=== PATIENT | male | born 1975 ===

== ENCOUNTER 2020-09-07 17:11 | Outpatient (REF) | payer OTHER, SELFPAY | END 2020-09-07 17:12 | disposition home or self-care (01) | LOC: HO.LAB 17:11 | PROVIDERS: PCP Internal Medicine; Visit Provider Internal Medicine | DX: Z20.828 Contact with and (suspected) exposure to other viral communicable diseases (principal) | CPT/HCPCS: U0003 ==

== ENCOUNTER → 2020-09-18 08:41 | Outpatient (BNVA) | payer OTHER, SELFPAY | PROVIDERS: PCP Internal Medicine; Referring Provider Internal Medicine; Visit Provider Nurse Practitioner Family | DX: Z76.89 Persons encountering health services in other specified circumstances (principal) ==

== ENCOUNTER → 2020-10-03 10:58 | Outpatient (REF) | payer OTHER, SELFPAY | LOC: HO.SL 10:58 | PROVIDERS: PCP Internal Medicine; Visit Provider Internal Medicine | DX: G47.9 Sleep disorder, unspecified (principal) | CPT/HCPCS: 95806 ==

== ENCOUNTER 2021-05-29 09:13 | Outpatient (REF) | payer OTHER, SELFPAY ==
--- NOTE | ~2021-05-29 | FL_ITS ---
EXAMINATION: XR GI SERIES CLINICAL INFORMATION: Gastroesophageal reflux disease. COMPARISON: None TECHNIQUE: Air-contrast upper GI examination. FINDINGS: There is normal apposition of the vocal cords while saying E. There is normal elevation of the soft palate while saying candy. Patient drank a combination of thin and thick liquid. No nasopharyngeal reflux or tracheal aspiration. Normal esophageal motility. No esophageal ulceration or persistent stricture appreciated. There is noted to be free gastroesophageal reflux to the level of the thoracic inlet which cleared slowly. There is a small hiatal hernia seen. The stomach demonstrates normal distensibility without abnormal mass or ulceration. There was no delay in gastric emptying. The duodenal bulb and sweep appear unremarkable. FLUOROSCOPY TIME: 1.6 minutes DOSE AREA PRODUCT: 12.212 Gy-cm2 (logan-centimeter squared) FL/FL upper GI series IMPRESSION: Free gastroesophageal reflux to the level of the thoracic inlet. Small hiatal hernia.
== END 2021-05-29 09:14 | disposition home or self-care (01) ==
LOC: HO.XRAY 09:13
PROVIDERS: PCP Internal Medicine; Visit Provider Internal Medicine
DX: K21.9 Gastro-esophageal reflux disease without esophagitis (principal)
CPT/HCPCS: 74240

== ENCOUNTER 2022-01-01 09:09 | Outpatient (REF) | payer OTHER, SELFPAY ==
--- NOTE | ~2022-01-01 | XR_ITS ---
EXAMINATION: XR SHOULDER, RIGHT XR SCAPULA, RIGHT CLINICAL INFORMATION: Pain right shoulder COMPARISON: None TECHNIQUE: Right shoulder is imaged in 4 views. There are 2 views of the right scapular. There are total of 6 views. FINDINGS: There is bulky calcific tendinosis in region of distal superior rotator cuff measuring approximately 5 mm in thickness, 1.2 cm medial to lateral, and 1.4 cm AP. There are no erosive changes. The glenohumeral joint appears normal. The acromioclavicular alignment is normal. There is normal bony mineralization. No destructive process, fracture, dislocation. XR/XR shoulder RT min 2V IMPRESSION: Calcific tendinosis in region of distal supraspinatus tendon measuring 0.5 x 1.2 x 1.4 cm.
--- NOTE | ~2022-01-01 | XR_ITS ---
EXAMINATION: XR SHOULDER, RIGHT XR SCAPULA, RIGHT CLINICAL INFORMATION: Pain right shoulder COMPARISON: None TECHNIQUE: Right shoulder is imaged in 4 views. There are 2 views of the right scapular. There are total of 6 views. FINDINGS: There is bulky calcific tendinosis in region of distal superior rotator cuff measuring approximately 5 mm in thickness, 1.2 cm medial to lateral, and 1.4 cm AP. There are no erosive changes. The glenohumeral joint appears normal. The acromioclavicular alignment is normal. There is normal bony mineralization. No destructive process, fracture, dislocation. XR/XR scapula RT IMPRESSION: Calcific tendinosis in region of distal supraspinatus tendon measuring 0.5 x 1.2 x 1.4 cm.
[2022-01-01 09:34] LABS: MANUAL DIFF FLAG NO
[2022-01-01 09:56] LABS: Basophils Percent Auto 0.8 % (0-2); Eosinophils Absolute Auto 0.1 X10*3/uL (0.0-0.4); Eosinophils Percent Auto 1.8 % (0-4); Hematocrit 45.3 % (42.0-52.0); Hemoglobin 15.6 g/dl (14.0-18.0); Imm Gran Abs Auto 0.01 X10*3/uL (0.00-0.03); Imm Gran Pct Auto 0.3 % (0.0-0.4); Lymphocytes Absolute Auto 1.5 X10*3/uL (1.2-4.9); Lymphocytes Percent Auto 38.4 % (20-40); Mean Corpuscular HGB Conc 34.4 g/dl (31.0-36.0); Mean Corpuscular Hemoglobin 32.6 pg (27.0-33.0); Mean Corpuscular Volume 94.6 fL (80.0-98.0); Mean Platelet Volume 9.8 fL (9.4-12.4); Monocytes Absolute Auto 0.4 X10*3/uL (0.1-1.2); Monocytes Percent Auto 10.2 % (2-11); Neutrophils Absolute Auto 1.9 x10*3/uL (2.0-8.3); Neutrophils Percent Auto 48.5 % (45-73); Platelet Count 184 X10*3/uL (160-400); Red Blood Count 4.79 X10*6/uL (4.60-5.80); Red Cell Distribution Width 12.5 % (11.0-16.0); White Blood Count 3.9 X10*3/uL (4.8-10.8)
[2022-01-01 10:52] LABS: Appearance Urine HAZY; Color Urine YELLOW; Glucose Urine UA NEG (NEG); Leukocyte Esterase Urine NEG (NEG); Nitrite Urine NEG (NEG); Specific Gravity - Urine 1.025 (1.005-1.025); UACC Culture Trigger NO; Urine Blood TRACE (NEG); Urine Ketones NEG (NEG); Urine Protein NEG (NEG-TRACE)
[2022-01-01 10:54] LABS: TSH reflex Free T4 1.56 uIU/mL (0.32-4.0)
[2022-01-01 11:06] LABS: Alanine Aminotransferase 26 U/L (0-40); Albumin Level 4.3 g/dL (3.5-5.0); Alkaline Phosphatase 71 U/L (39-117); Anion Gap 10 (12-20); Aspartate Amino Transferase 22 U/L (5-37); Bilirubin Total 1.2 mg/dL (0.0-1.0); Blood Urea Nitrogen 15 mg/dL (9-16); Calcium 9.5 mg/dL (8.4-10.2); Carbon Dioxide 28 mmol/L (22-29); Chloride 105 mmol/L (96-108); Cholesterol 205 mg/dL; Estimated Glomerular Filt Rate > 60; Glucose Fasting 86 mg/dL (60-99); HDL Cholesterol 46 mg/dL; LDL Cholesterol Calculated 136 mg/dl; Potassium 4.4 mmol/L (3.3-5.1); Sodium 139 mmol/L (135-145); Total Protein 6.9 g/dL (6.5-8.0); Triglycerides 117 mg/dL
[2022-01-01 11:34] LABS: Prostate Specific Antigen Scr 0.31 ng/mL (<0.05-4.0)
[2022-01-01 11:38] LABS: RBC Urine 0-2 /HPF (0); WBC Urine 0 /HPF (0-4)
== END 2022-01-01 09:10 | disposition home or self-care (01) ==
LOC: HO.LAB 09:09
PROVIDERS: PCP Internal Medicine; Visit Provider Internal Medicine
DX: Z00.00 Encounter for general adult medical examination without abnormal findings (principal); Z12.5 Encounter for screening for malignant neoplasm of prostate; K21.9 Gastro-esophageal reflux disease without esophagitis; E78.00 Pure hypercholesterolemia, unspecified; E66.3 Overweight; M25.511 Pain in right shoulder; M89.8X1 Other specified disorders of bone, shoulder
CPT/HCPCS: 36415; 73010; 73030; 80053; 80061; 81001; 84153; 84443; 85025

== ENCOUNTER 2022-12-17 14:29 | Outpatient (REF) | payer OTHER, SELFPAY ==
[2022-12-19 11:27] LABS: H Pylori Breath Test Negative (Negative)
== END 2022-12-17 14:30 | disposition home or self-care (01) ==
LOC: CF 14:29
PROVIDERS: PCP Internal Medicine; Visit Provider Physician Assistant
DX: A04.8 Other specified bacterial intestinal infections (principal); K21.9 Gastro-esophageal reflux disease without esophagitis; K44.9 Diaphragmatic hernia without obstruction or gangrene
CPT/HCPCS: 36415; 83013

== ENCOUNTER 2023-03-07 09:24 | Outpatient (REF) | payer OTHER, SELFPAY ==
[2023-03-07 11:15] LABS: Alanine Aminotransferase 25 U/L (0-40); Albumin Level 4.4 g/dL (3.5-5.0); Alkaline Phosphatase 84 U/L (39-117); Anion Gap 12 (12-20); Aspartate Amino Transferase 21 U/L (5-37); Bilirubin Total 1.3 mg/dL (0.0-1.0); Blood Urea Nitrogen 11 mg/dL (9-16); Calcium 9.4 mg/dL (8.4-10.2); Carbon Dioxide 27 mmol/L (22-29); Chloride 106 mmol/L (96-108); Cholesterol 216 mg/dL; Estimated Glomerular Filt Rate > 60; Glucose Fasting 89 mg/dL (60-99); HDL Cholesterol 47 mg/dL; Potassium 4.8 mmol/L (3.3-5.1); Sodium 140 mmol/L (135-145); Total Protein 6.8 g/dL (6.5-8.0)
== END 2023-03-07 09:25 | disposition home or self-care (01) ==
LOC: HO.LAB 09:24
PROVIDERS: PCP Internal Medicine; Visit Provider Internal Medicine
DX: E78.00 Pure hypercholesterolemia, unspecified (principal)
CPT/HCPCS: 36415; 80053; 80061

== ENCOUNTER 2023-09-02 16:47 | Outpatient (AMB) | payer OTHER, SELFPAY ==
[2023-09-02 16:52] VITALS: BP 110/78; PULSE 76; O2SAT 98; BMI 26.6
--- NOTE | 2023-09-02 16:52 | MHC.PC.OV ---
Vital Signs 09/02/23 16:52 Height 5 ft 4 in Weight 155 lb 0.4 oz BMI 26.6 BP 110/78 Blood Pressure Location Lt brachial Position Sitting Pulse 76 Pulse Source Pulse Oximeter Pulse Oximetry (%) 98 Oxygen Delivery Method Room Air Intake Visit Reasons: Annual Exam Allergies No Known Allergies Allergy (Verified 09/02/23 19:21) Medication List - Last Reconciled 09/02/23 by Leobardo Irwin MD fluticasone propionate 50 mcg/actuation 2 sprays intranasal DAILY PRN 30 days Tobacco use date assessed: 03/02/23 Dental Screening Dental Screen Date: 09/02/23 Did you have a dental visit in the last 12 months?: Yes Did you have a dental problem in the last 6 months where you did not have access to dental care?: No Was dental information given to patient?: Patient has dentist HPI Annual Exam HPI Details Patient comes in today for his annual physical examination States that he feels okay except for recurrent nasal congestion lately, especially in his left nostril Notes that this started with the change in the season a couple of weeks ago and felt it got worse when he turned on the heat in his house recently Is wondering if he has any kind of sinus infection or allergies but he also recalls being advised by ENT a few years ago when he was seen by them that he has some deviated septum in his nose and he will require surgery to correct this at some point Also notes that his chest feels congested sometimes and it is affecting his breathing - thinks that he feels somewhat short of breath when this occurs Denies any history of asthma or any lung condition He denies any sinus pain or any bloody discharge from his nose or sinuses lately He denies any headaches or dizziness; denies any fever or sore throat Denies any chest pains No nausea/vomiting, no abdominal pain but he is still experiencing recurrent symptoms of heartburns and acid reflux No change in bowel habits noted He denies any acute urinary symptoms He was seen by GI earlier this year for his acid reflux; had an H. pylori breath test done that came back negative He was then started on Omeprazole and Simethicone and instructed to call back if Rx do not help in a few months States that he has tried calling GI a few times but feels like no one is answering the phone over there so he has not been able to get back in to see them afterwards He also had Cologuard testing done last year that came back negative - is due for either repeat Cologuard testing in 3 years (2024) or a regular screening colonoscopy then, which is still the gold standard in colon cancer screening Patient also was not able to get his previously ordered labs done in time for his appointment today [facility] Medical History Vitamin D deficiency Colon cancer screening GERD without esophagitis Overweight (BMI 25.0-29.9) Pure hypercholesterolemia Low back pain Obstructive sleep apnea Surgical History No significant past surgical history Family History Father Medical history unknown Mother No problems noted. 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 Cognitive needs: No Hearing needs: No Vision needs: No Questionnaire PHQ-9 Over the last 2 weeks, how often have you been bothered by any of the following problems? 1. Little interest or pleasure in doing things: not at all 2. Feeling down, depressed, or hopeless: not at all 3. Trouble falling or staying asleep, or sleeping too much: not at all 4. Feeling tired or having little energy: not at all 5. Poor appetite or overeating: not at all 6. Feeling bad about yourself - or that you are a failure or have let yourself or your family down: not at all 7. Trouble concentrating on things, such as reading the newspaper or watching television: not at all 8. Moving or speaking so slowly that other people could have noticed. Or the opposite - being so fidgety or restless that you have been moving around a lot more than usual: not at all 9. Thoughts that you would be better off or of hurting yourself in some way: not at all Total score: 0 Depression Screening Interpretation: Negative Depression Screening Done: Yes 99593 - PHQ-9 Billing: Yes Source: Developed by Drs. Santiago Carballo, Yanna Heck, Brendan Gold and colleagues, with an educational louise from [employer]. Thrive Questionnaire Date Thrive assessed: 09/02/23 I am a: Patient What is your living situation today?: I have a steady place to live Within the past 12 months, did the food you bought not last and you didn't have the money to get more?: Never true Within the past 12 months, did you worry whether your food would run out before you got money to buy more?: Never true Do you have trouble paying for medicines?: No Do you have trouble getting transportation to medical appointments?: No Do you have trouble paying your heating and electricity bill?: No Do you have trouble taking care of your child, family member or friend?: No Do you have trouble with day-to-day activities such as bathing, preparing meals, shopping, managing finances, etc.?: No Are you currently unemployed and looking for a job?: No Are you interested in more education?: No Currently or been in a relationship where the following occur: no concerns reported AUDIT C Alcohol Use Questionnaire (AUDIT-C) 1. How often do you have a drink containing alcohol?: Never 3. How often do you have six or more drinks on one occasion?: Never Total Score: 0 Score Reviewed/Action Taken: Yes JUSTO-7 AMB Questionnaire JUSTO-7 Date JUSTO - 7 assessed: 09/02/23 Feeling nervous, anxious, or on edge: 0 = Not at all Not being able to stop or control worryin = Not at all Worrying too much about different things: 0 = Not at all Trouble relaxin = Not at all Being so restless that it is hard to sit still: 0 = Not at all Becoming easily annoyed or irritable: 0 = Not at all Feeling afraid as if something awful might happen: 0 = Not at all Total JUSTO-7 score (0-4 normal; 5-9 mild; 10-14 moderate; 15-21 severe): 0 Source: Developed by Yanna Sutherland Kurt Kroenke and colleagues, with an educational louise from [employer]. Review of Systems Const Denies chills, Denies fatigue, Denies fever(s), Denies headache(s), Denies malaise and Denies weakness Eyes Denies blurry vision, Denies change in vision, Denies irritation and Denies itchy eyes ENT Denies dysphagia, Denies dizziness, Denies otalgia, Denies headache(s), Reports nasal congestion (on and off, especially in the left nostril), Denies neck pain, Denies odynophagia and Denies sore throat Card Denies chest pain, Denies rapid heart rate, Denies irregular heart rhythm, Denies palpitations and Reports dyspnea (occasional - see HPI) Resp Denies chest congestion, Denies cough, Reports dyspnea (occasional - see HPI) and Denies wheezing GI Denies abdominal pain, Denies bloating, Denies constipation, Denies dysphagia, Reports heartburn (on and off), Denies diarrhea, Denies nausea, Denies odynophagia and Denies vomiting Denies hematuria, Denies difficulty urinating, Denies dysuria, Denies urinary frequency and Denies urinary urgency Musc Denies back pain, Denies arthralgias, Denies joint swelling, Denies muscle weakness and Denies neck pain Skin/Breast Denies change in pigmentation, Denies lesions, Denies rash and Denies unusual bruising Neuro Denies dizziness, Denies headache(s), Denies paresthesias and Denies weakness Endo Denies fatigue and Denies palpitations Aller/Immun Denies itchy eyes and Denies wheezing Physical exam (Primary Care) Vital Signs: Last Vital Signs Pulse 76 09/02/23 16:52 BP 110/78 09/02/23 16:52 Pulse Ox 98 09/02/23 16:52 Oxygen Delivery Method Room Air 09/02/23 16:52 BMI result Body Mass Index 26.6 Tobacco/Smoking Status: Tobacco use Status Tobacco use date assessed 03/02/23 09/02/23 16:52 Patient Tobacco Use Status Former Tobacco user 09/02/23 16:52 e-Cigarette/Vaping Use Never Used 09/02/23 16:52 PHQ-9: PHQ-9 Score PHQ-9: Total score 0 09/02/23 19:32 Depression Screening Interpretation: Negative Thrive Assessment: Date of Thrive Assessment Date Thrive assessed 09/02/23 09/02/23 19:32 Currently or been in a relationship where the following occur: no concerns reported Const General: no acute distress, alert and awake Orientation/consciousness: patient oriented x3 [facility] Head: Yes normocephalic and Yes atraumatic Ears: external ears normal, TM's normal bilaterally and EAC's normal General nose exam: No nasal discharge present and Abnormal mucous membranes and turbinates present boggy on the left and erythematous on the left Face and sinus: Yes normal facial exam and Yes sinuses nontender Teeth and gingiva: dentition normal Throat: Yes posterior oropharynx normal and Yes tonsils normal (no TP congestion) Eyes Eyelids: Yes eyelids normal Conjunctivae: conjunctivae normal Pupils: Equal, round and reactive pupils present EOM: EOMs intact bilaterally Neck Neck: Yes no lymphadenopathy and Yes supple Thyroid: Thyroid normal Resp Auscultation: clear to auscultation bilaterally, no rales and no wheezes Cardio Rate: regular rate Rhythm: regular rhythm Heart sounds: no murmurs GI Palpation (GI): Soft to palpation, nontender and No hepatosplenomegaly present Auscultation: normal bowel sounds General: Yes no CVA tenderness Back/Spine/Pelvis Back: no CVA tenderness Thoracic/Lumbar Spine: thoracic and lumbar spine normal to inspection Skin Lesions: no lesions Rashes: no rashes Neuro General: patient oriented x3, moves all extremities, no focal motor deficits and CN's II-XI intact bilaterally Cranial nerves: Yes Equal, round and reactive pupils present Cognition (Neuro): normal cognition Gait exam (Neuro): Normal gait present Extrem General: Yes no clubbing, cyanosis or edema Assessment and Plan Assessment & Plan (1) Annual physical exam: Code(s): Z00.00 - Encounter for general adult medical examination without abnormal findings Plan: Check labs - patient advised to just use his current lab orders (updated) He had a negative Cologuard done last year - will need repeat Cologuard or a regular screening colonoscopy in a couple of years (2024) (2) Pure hypercholesterolemia: Code(s): E78.00 - Pure hypercholesterolemia, unspecified Plan: Patient is instructed to get his labs done JOHANNA to recheck his fasting lipids Reinforced low cholesterol diet Will recheck his labs and fasting lipids in 6 months for follow up (3) GERD without esophagitis: Code(s): K21.9 - Gastro-esophageal reflux disease without esophagitis Plan: Reinforced dietary restrictions Was seen bu GI earlier this year; H. pylori test came back negative Was started on Omeprazole 20 mg QD and Simethicone TID to QID PRN, which patient states were helping but he appears to have stopped taking the medications at some point and he is currently experiencing recurrent reflux symptoms again Will refer him back to GI for consideration for EGD (4) Dyspnea: Code(s): R06.00 - Dyspnea, unspecified Qualifiers: Dyspnea type: shortness of breath Qualified Code(s): R06.02 - Shortness of breath Plan: Patient is reassured that his lungs sound clear on exam Will send him for chest x-rays JOHANNA for further evaluation of his recent on and off symptoms of dyspnea (5) Allergic rhinitis: Code(s): J30.9 - Allergic rhinitis, unspecified Qualifiers: Allergic rhinitis trigger: unspecified Allergic rhinitis seasonality: unspecified Qualified Code(s): J30.9 - Allergic rhinitis, unspecified Plan: Will start patient on a trial of Fluticasone 50 mcg nasal spray 1 to 2 sprays into each nostril but especially in the left nostril QD PRN If the nasal spray does not help with his recurrent nasal congestion, will then consider referring him to ENT for further evaluation and management, especially since he reportedly has a deviated nasal septum that may also be contributing to his nasal symptoms and would likely require surgical correction at some point (6) Vitamin D deficiency: Code(s): E55.9 - Vitamin D deficiency, unspecified Plan: Continue Vitamin D3 1000 units QD Will recheck his Vitamin D level for follow up (7) Obstructive sleep apnea: Comment: Home sleep study done on 10/03/2020 revealed mild degree of sleep apnea. Recommend auto PAP of 5-20 cm of water Code(s): G47.33 - Obstructive sleep apnea (adult) (pediatric) Plan: (+) MILD ANCELMO - confirmed on sleep studies done in 2011, 2013 and 2019, although patient has excessive snoring when sleeping at night Has not been able to tolerate any PAP devices Follow up with Sleep Medicine as scheduled to continue to help him get his sleep issues resolved (8) Overweight (BMI 25.0-29.9): Code(s): E66.3 - Overweight Plan: Reinforced diet/exercise as tolerated/lose weight Plan Follow up in 6 months Orders: Orders Comprehensive [place]. Panel Fast 6 Months E78.00 - Pure hypercholesterolemia, unspecified XR chest 2V 09/02/23 R06.00 - Dyspnea, unspecified Lipid Panel 6 Months E78.00 - Pure hypercholesterolemia, unspecified Referrals Gastroenterology Referral K21.9 - Gastro-esophageal reflux disease without esophagitis Medications: New fluticasone propionate 50 mcg/actuation administer into each nostril 2 sprays intranasal DAILY 30 days PRN 16 grams 5RF allergy symptoms Coding Level of Care Code Est Pt Prev Care 40-64y(34200) Diagnoses Annual physical exam Z00.00 Pure hypercholesterolemia E78.00 GERD without esophagitis K21.9 Shortness of breath R06.02 Dyspnea type: shortness of breath Allergic rhinitis, unspecified seasonality, unspecified trigger J30.9 Allergic rhinitis trigger: unspecified Allergic rhinitis seasonality: unspecified Vitamin D deficiency E55.9 Obstructive sleep apnea G47.33 Overweight (BMI 25.0-29.9) E66.3
== END 2023-09-02 17:50 | disposition home or self-care (01) ==
PROVIDERS: Visit Provider Internal Medicine
DX: Z00.00 Encounter for general adult medical examination without abnormal findings (principal); E78.00 Pure hypercholesterolemia, unspecified; K21.9 Gastro-esophageal reflux disease without esophagitis; R06.02 Shortness of breath; J30.9 Allergic rhinitis, unspecified; E55.9 Vitamin D deficiency, unspecified; G47.33 Obstructive sleep apnea (adult) (pediatric); E66.3 Overweight
CPT/HCPCS: 99396

== ENCOUNTER 2023-09-05 09:25 | Outpatient (REF) | payer OTHER, SELFPAY ==
[2023-09-05 09:37] LABS: MANUAL DIFF FLAG NO
[2023-09-05 10:06] LABS: Basophils Absolute Auto 0.1 X10*3/uL (0.0-0.2); Eosinophils Absolute Auto 0.1 X10*3/uL (0.0-0.4); Hematocrit 45.4 % (42.0-52.0); Hemoglobin 15.8 g/dl (14.0-18.0); Imm Gran Abs Auto 0.01 X10*3/uL (0.00-0.03); Imm Gran Pct Auto 0.2 % (0.0-0.4); Lymphocytes Absolute Auto 2.4 X10*3/uL (1.2-4.9); Lymphocytes Percent Auto 50.3 % (20-40); Mean Corpuscular HGB Conc 34.8 g/dl (31.0-36.0); Mean Corpuscular Volume 92.1 fL (80.0-98.0); Mean Platelet Volume 9.4 fL (9.4-12.4); Monocytes Absolute Auto 0.4 X10*3/uL (0.1-1.2); Monocytes Percent Auto 7.7 % (2-11); Neutrophils Absolute Auto 1.9 x10*3/uL (2.0-8.3); Neutrophils Percent Auto 39.8 % (45-73); Platelet Count 195 X10*3/uL (160-400); Red Blood Count 4.93 X10*6/uL (4.60-5.80); Red Cell Distribution Width 12.3 % (11.0-16.0); White Blood Count 4.8 X10*3/uL (4.8-10.8)
[2023-09-05 10:32] LABS: Appearance Urine Clear; Color Urine Yellow; Glucose Urine UA Negative (Negative); Leukocyte Esterase Urine Negative (Negative); Nitrite Urine Negative (Negative); UMIC TRIGGER UACC YES; Urine Blood Trace (Negative); Urine Ketones Negative (Negative); Urine Protein Negative (Neg-Trace)
[2023-09-05 10:37] LABS: Bacteria Urine None Seen (None Seen); RBC Urine 0-2 /HPF (0-2); Squamous Epithelial Cell Urine 0-2 /HPF (0-2); WBC Urine 0-5 /HPF (0-5)
[2023-09-05 10:42] LABS: Alanine Aminotransferase 20 U/L (0-40); Albumin Level 4.2 g/dL (3.5-5.0); Alkaline Phosphatase 71 U/L (39-117); Anion Gap 12 (12-20); Aspartate Amino Transferase 19 U/L (5-37); Bilirubin Total 1.1 mg/dL (0.0-1.0); Blood Urea Nitrogen 13 mg/dL (9-16); Calcium 9.3 mg/dL (8.4-10.2); Carbon Dioxide 24 mmol/L (22-29); Chloride 107 mmol/L (96-108); Cholesterol 210 mg/dL (<200); Estimated Glomerular Filt Rate > 60; Glucose Fasting 86 mg/dL (60-99); HDL Cholesterol 47 mg/dL (>40); LDL Cholesterol Calculated 147 mg/dL (<100); Sodium 139 mmol/L (135-145); Total Protein 6.9 g/dL (6.5-8.0); Triglycerides 81 mg/dL (<150)
[2023-09-05 10:54] LABS: Prostate Specific Antigen Scr 0.22 ng/mL (<0.05-4.0)
[2023-09-05 11:00] LABS: TSH reflex Free T4 1.17 uIU/mL (0.32-4.0); Vitamin D 25-OH Total 25.4 ng/mL (>30)
== END 2023-09-05 09:26 | disposition home or self-care (01) ==
LOC: HO.LAB 09:25
PROVIDERS: PCP Internal Medicine; Visit Provider Internal Medicine
DX: Z00.00 Encounter for general adult medical examination without abnormal findings (principal); Z12.5 Encounter for screening for malignant neoplasm of prostate; E78.00 Pure hypercholesterolemia, unspecified; E55.9 Vitamin D deficiency, unspecified
CPT/HCPCS: 36415; 80053; 80061; 81001; 82306; 84153; 84443; 85025

== ENCOUNTER 2023-09-17 14:34 | Outpatient (AMB) | payer OTHER, SELFPAY ==
--- NOTE | 2023-09-17 14:36 | MHC.OFFVIS ---
Intake Vital Signs 09/17/23 14:38 Height 5 ft 4 in Weight 154 lb 5.177 oz BMI 26.5 BP 113/65 Blood Pressure Location Lt brachial Position Sitting Pulse 71 Intake Visit Reasons: Gastroesophageal reflux disease (GERD) Intake Note: Jesús presents in the office as a follow up for GERD. CC: He states that he is having acid reflux - no pains in the stomach and no irregular bowel movements. [employer] Required: No Allergies No Known Allergies Allergy (Verified 09/17/23 14:38) Medication List - Last Reconciled 09/17/23 by Sonia Myles PA-C fluticasone propionate 50 mcg/actuation 2 sprays intranasal DAILY PRN 30 days HPI HPI Comments History of Present Illness Details A 48-year-old male seen last in December 2022 with GERD. He had trial PPI was to follow up for progress-into discuss if need for EGD He presents today- stopped omeprazole- was not beneficial- reflux with gas-dietary modifications if not been helpful Is getting some frustrated Eats healthy HP- negative Cologuard 2021 negative He had sleep study- he does not use cpap-[facility] Medical History Vitamin D deficiency Colon cancer screening GERD without esophagitis Overweight (BMI 25.0-29.9) Pure hypercholesterolemia Low back pain Obstructive sleep apnea Surgical History No significant past surgical history Family History Father Medical history unknown Mother No problems noted. Other Substance abuse Social History Housing: House Alcohol intake: never Patient Tobacco Use Status: Former Tobacco user e-Cigarette/Vaping Use: Never Used Second Hand Smoke Exposure: Yes service: No Current occupational status: employed Current occupation: [employer] Cognitive needs: No Hearing needs: No Vision needs: No Review of Systems Const All systems reviewed & are unremarkable except as noted in HPI and below Card Denies chest pain and Denies dyspnea Resp Denies dyspnea GI Denies abdominal pain, Denies change in bowel habits, Reports heartburn, Denies nausea and Denies vomiting Physical Exam Vital Signs: Last Vital Signs Pulse 71 09/17/23 14:38 BP 113/65 09/17/23 14:38 BMI result Body Mass Index 26.5 somewhat anxious Const General: cooperative, healthy appearing, comfortable and no acute distress Orientation/consciousness: patient oriented x3 Limitations: no limitations Resp Effort & Inspection: normal respiratory effort Auscultation: clear to auscultation bilaterally, no rales, no rhonchi and no wheezes Cardio Rate: regular rate Rhythm: regular rhythm Heart sounds: S1 normal heart sound present and S2 normal heart sound present GI Palpation (GI): Soft to palpation and nontender Auscultation: normal bowel sounds Skin General skin exam: no rashes or lesions noted Neuro General: patient oriented x3 Extrem General: Yes full ROM Psych Appearance: grossly normal and well kempt Speech and movement: Normal speech and movement present and Clear speech present Affect: normal affect Attitude: cooperative Thought process: Normal thought process present Thought content: Normal thought content present Assessment & Plan Assessment & Plan (1) GERD without esophagitis: Code(s): K21.9 - Gastro-esophageal reflux disease without esophagitis Plan: declines ppi or H2 asia FOD map food diary (2) Hiatal hernia: Code(s): K44.9 - Diaphragmatic hernia without obstruction or gangrene Plan: reviewed UGI Orders: Orders EDG - GI Use Only 09/17/23 K21.9 - Gastro-esophageal reflux disease without esophagitis, K44.9 - Diaphragmatic hernia without obstruction or gangrene Patient Instructions: A 48 y/o male acid reflux despite PPI dietary modifications Reviewed reflux precautions-avoid culprits, food diary FODMAP diet Schedule EGD, ro pud, nonulcer dyspepsia, esophagitis, other endoscopic findings to account for sx He is agreeable to the plan Literature given Encouraged to call questions or concerns She the opportunity assist in the care of the pt Coding Level of Care Code Est Pt Level 4 (36898) Diagnoses GERD without esophagitis K21.9 Hiatal hernia K44.9 Time Spent (min) 35
[2023-09-17 14:38] VITALS: BP 113/65; PULSE 71; BMI 26.5
== END 2023-09-17 16:09 | disposition home or self-care (01) ==
PROVIDERS: PCP Internal Medicine; Visit Provider Physician Assistant
DX: K21.9 Gastro-esophageal reflux disease without esophagitis (principal); K44.9 Diaphragmatic hernia without obstruction or gangrene
CPT/HCPCS: 99214

== ENCOUNTER → 2023-09-17 14:34 | Outpatient (BNVA) | payer OTHER, SELFPAY | PROVIDERS: PCP Internal Medicine; Visit Provider Physician Assistant ==

== ENCOUNTER 2024-01-26 10:28 | Day surgery (SDC) | payer OTHER, SELFPAY ==
--- NOTE | 2024-01-25 14:23 | HO.ANESPROP2 ---
Documented by User: Della Blackburn NP 01/25/24 14:24 HPI - Anesthesia Eval Consult details Narrative: 48yo M for Upper Endoscopy PMFSH Active Problems Active Problems: All Active Problems (Updated 09/03/23 @ 04:21 by Leobardo Irwin MD) Allergic rhinitis (Acute) Dyspnea (Acute) Impaired vision in both eyes (Acute) Hiatal hernia (Acute) Vitamin D deficiency (Acute) Pain of right scapula (Acute) Right shoulder pain (Acute) Colon cancer screening (Acute) GERD without esophagitis (Acute) Annual physical exam (Acute) Pain of right upper extremity (Acute) Overweight (BMI 25.0-29.9) (Acute) Pure hypercholesterolemia (Acute) Obstructive sleep apnea (Acute) Sleep disorder, unspecified (Acute) Past Medical History Medical History Vitamin D deficiency Colon cancer screening GERD without esophagitis Overweight (BMI 25.0-29.9) Pure hypercholesterolemia Low back pain Obstructive sleep apnea Family History Family History Father Medical history unknown Mother No problems noted. 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 Other Substance abuse Family history of problems with anesthesia: No Surgical History Surgical History No significant past surgical history History of Problems with Anesthesia: No Social History Social History Housing: House Alcohol intake: never Patient Tobacco Use Status: Former Tobacco user e-Cigarette/Vaping Use: Never Used Second Hand Smoke Exposure: Yes Use of substances other than those prescribed or required for medical reasons: No Are you DNR?: No Advance Directives: No Advance Directives Information Provided: Yes service: No Current occupational status: employed Current occupation: [employer] Cognitive needs: No Hearing needs: No Vision needs: No Meds Allergies Allergy/AdvReac Type Severity Reaction Status Date / Time No Known Allergies Allergy Verified 01/26/24 11:00 Exam Airway Mallampati Class: III TM Dist: >3cm Neck ROM: Full Assessment and Plan Assessment Anesthesia Assessment: Anesthesia Plan Discussed Final Anesthetic Review Family History of Problems with Anesthesia: No History of Problems with Anesthesia: No NPO: Yes ASA Class: II Final Preanesthetic Review: No Changes in Pt Med Stat, Meds/Allgs Chart Reviewed, Consent Obtained/Reviewed and Anes Risks/Benef Reviewed Patient Risk: Intermediate Procedure Risk: Low Anesthetic Plan Anesthetic Plan: TIVA Disposition: Standard PACU
[2024-01-26 11:00] VITALS: BMI 26.4
[2024-01-26 11:09] VITALS: BP 120/68; PULSE 86; RESP 16; TEMP 36.7; O2SAT 99
--- NOTE | 2024-01-26 11:26 | P.HPSUR_ITS ---
Pre-Procedural Eval Section A - 24 Hr Update-Section A only Date of Service: 01/26/24 Section B - Complete if H&P > 30 days Chief Complaint: reflux disease Relevant Family History (Specify if Yes): No Relevant Social History: None Present Medications: see Short Stay Collaborative assessment Medical History: Significant History (Vitamin D deficiency Colon cancer screening GERD without esophagitis Overweight (BMI 25.0-29.9) Pure hypercholesterolemia Low back pain Obstructive sleep apnea) History of Previous Operations: No relevant previous surgery Allergies: Allergies Allergy/AdvReac Type Severity Reaction Status Date / Time No Known Allergies Allergy Verified 01/26/24 11:00 Review of Systems Sugical H&P ROS: Negative: Constitution, Cardiovascular, Respiratory, Neurological, Psychiatric, Hem-Onc, Allergic/Immunologic, Gastrointestinal, Genitourinary, Musculoskeletal, Integumentary, Endocrine and Eyes/Ears/Nose/Throat Exam Surgical H&P Exam: Normal: HEENT, Normal: Heart, Normal: Lungs, Normal: Extr emities, Normal: Abdomen, Normal: Skin and Normal: Neurological Plan Diagnosis/Plan: Unchanged I have reviewed the history and physical and performed a pertinent physical examination on my patient. No changes have occurred unless specified. Time Spent With Patient Time: Total time managing care of this patient today ____ minutes.
[2024-01-26] MEDS: Lactated Ringers 1,000 ML 100 ML IVCONT (11:35)
--- NOTE | 2024-01-26 11:53 | W.PM.OPN ---
Operative Note Operative Note Date of Service: 01/26/24 Narrative: Procedure Description: EGD Indication: GERD Anesthesia: MAC FLEXIBLE TRANSORAL UPPER GASTROINTESTINAL ENDOSCOPY UPPER ENDOSCOPY Consent: Indications for the procedure and potential complications of bleeding, perforation, reaction to medications and missed diagnosis were discussed with the patient and informed consent was obtained. Instrument: Olympus GIF H 190 J mid size upper endoscope Monitoring: Vital signs and clinical assessment, continuous EKG monitoring, Pulse oximetry, Carbon Dioxide monitoring and blood pressure monitoring were done throughout the procedure. Procedure: The patient was placed in the left lateral decubitis position and pre-procedure medications were administered and a bite block was placed. The endoscope was inserted into the mouth and advanced under direct vision to the third part of duodenum. A careful inspection was made as the upper endoscope was withdrawn including a retroflexed examination of the proximal stomach; Findings and interventions are described below. Findings: Larynx:normal Esophagus: GE junction at 37 cm, diaphragm hiatus at 40 cm, consistent with 3 cm sliding hiatal hernia, bogginess and edema around GEJ, bx taken as well as from distal esophagus- non obstructive schatzki ring Stomach: patchy erythema . Biopsies were obtained. Grade 3 flap valve on retroflexed examination of the cardia with v patulous LES. Few small fundic gland polyps noted Duodenum: Normal bulb and descending duodenum, bx taken Intervention: Biopsies as noted above, Impression/Findings: gastritis esophagitis patulous GEJ hiatal hernia fundic gland polyps- benign schatzki ring PLAN: Can consider trial of PPI, vs surgical assessment for hernia repair and fundoplication GERD precautions if H pylori pos then treat
[2024-01-26 12:04] VITALS: BP 90/50; PULSE 76; RESP 15; TEMP 36.2; O2SAT 94
[2024-01-26 12:21] VITALS: BP 102/60; PULSE 68; RESP 17; TEMP 36.2; O2SAT 99
== END 2024-01-26 13:20 | disposition home or self-care (01) ==
PROVIDERS: PCP Internal Medicine; Visit Provider Internal Medicine Gastroenterology
PROC: 0DJ08ZZ Inspection of Upper Intestinal Tract, Via Natural or Artificial Opening Endoscopic (ICD-10-PCS; CPT 43235; principal; 2024-01-26 12:50)
DX: K31.7 Polyp of stomach and duodenum (principal); K29.60 Other gastritis without bleeding; K20.90 Esophagitis, unspecified without bleeding; K22.2 Esophageal obstruction; Q40.8 Other specified congenital malformations of upper alimentary tract; K22.89 Other specified disease of esophagus; K44.9 Diaphragmatic hernia without obstruction or gangrene; K21.9 Gastro-esophageal reflux disease without esophagitis; E78.00 Pure hypercholesterolemia, unspecified; G47.33 Obstructive sleep apnea (adult) (pediatric)
CPT/HCPCS: 43239; 88305; 88313; 88342; J2704

== ENCOUNTER → 2024-01-26 10:28 | Outpatient (BNV) | payer OTHER, SELFPAY | PROVIDERS: PCP Internal Medicine; Visit Provider Internal Medicine Gastroenterology | DX: K21.00 Gastro-esophageal reflux disease with esophagitis, without bleeding (principal); K22.2 Esophageal obstruction; K31.7 Polyp of stomach and duodenum; K29.70 Gastritis, unspecified, without bleeding | CPT/HCPCS: 43239 ==

== ENCOUNTER 2024-02-09 14:58 | Outpatient (AMB) | payer OTHER, SELFPAY ==
--- NOTE | 2024-02-09 14:59 | MHC.OFFVIS ---
Intake Vital Signs 02/09/24 15:04 Height 5 ft 4 in Weight 155 lb BMI 26.6 BP 109/62 Blood Pressure Location Lt brachial Position Sitting Pulse 76 Intake Visit Reasons: S/P EGD; Dr. Shay Intake Note: Patient follow up for EGD results. Patient cc: GERD. Tele Rn Required: No Accompanied by: Self / Same As Patient Allergies No Known Allergies Allergy (Verified 02/09/24 15:02) HPI HPI Comments History of Present Illness Details A 48 y/o male f/u after EGD- , acid reflux he had declined PPI or H2 asia. He does complain that he gets gas-some stomach upset. He is not taking a ppi-per his choice we were Reviewed procedure report, as well as pathology and recommendation He had multiple questions in which we discussed answered to his satisfaction He has no nausea vomiting fever chills he has no abdominal pain PFSH Medical History Vitamin D deficiency Colon cancer screening GERD without esophagitis Overweight (BMI 25.0-29.9) Pure hypercholesterolemia Low back pain Obstructive sleep apnea Surgical History History of esophagogastroduodenoscopy (EGD) No significant past surgical history Family History Father Medical history unknown Mother No problems noted. 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 [employer] Cognitive needs: No Hearing needs: No Vision needs: No Review of Systems Const All systems reviewed & are unremarkable except as noted in HPI and below Card Denies chest pain and Denies dyspnea Resp Denies dyspnea GI Reports dyspepsia Physical Exam Vital Signs: Last Vital Signs Pulse 76 02/09/24 15:04 BP 109/62 02/09/24 15:04 BMI result Body Mass Index 26.6 Const General: cooperative, healthy appearing, comfortable and no acute distress Orientation/consciousness: patient oriented x3 Limitations: no limitations Resp Effort & Inspection: normal respiratory effort and able to speak in complete sentences Neuro General: patient oriented x3 Extrem General: Yes full ROM Psych Appearance: grossly normal and well kempt Mental Status: mental status grossly normal Speech and movement: Normal speech and movement present Affect: normal affect Attitude: cooperative Thought process: Normal thought process present Thought content: Normal thought content present Results Reviewed Results Reviewed: Impression/Findings: gastritis esophagitis patulous GEJ hiatal hernia fundic gland polyps- benign schatzki ring PLAN: Can consider trial of PPI, vs surgical assessment for hernia repair and fundoplication GERD precautions if H pylori pos then treat Name: Jesús Green Age/Sex: 48/M Attending: Shabana Shay MD : 1975 Submitted by: Shabana Shay MD Copies to: Leobardo Irwin MD MR #: [id number] Status: [facility] Collected: 01/26/24 Location: [facility] Received: 01/26/24 Diagnosis A. Duodenum, biopsy: Duodenal mucosa within normal limits. B. Stomach, biopsy: Antral-type and oxyntic mucosa with mild chronic inactive inflammation; no Helicobacter organisms seen. C. GE junction, biopsy: - Cardiac-type mucosa with moderate chronic inactive inflammation; no intestinal metaplasia seen. - No squamous epithelium identified. D. Esophagus, distal, biopsy: Squamous mucosa within normal limits; no inflammation seen. Clinical History Pre-Op Dx: Reflux Post-Op Dx: Hiatal hernia, Schatzki's ring, esophagitis, gastritis, patulous LES Microscopic Description A-D. Microscopic sections examined. No metaplastic changes are seen, supported by AB/PAS stains (A- C); no Helicobacter organisms are seen, supported by H. pylori immunostain (B). Material Received A. Bx duodenum B. Bx stomach C. Bx GE junction D. Bx distal esophagus Gross Description Received in 4 parts. Part A: Received in formalin labeled ?bx duodenum? are 3 little-pink irregular tissue fragments each measuring 0.15 cm, submitted in toto in a cassette labeled A. Part B: Received in formalin labeled ?bx stomach? are 2 little-pink irregular tissue fragments measuring 0.2 and 0.3 cm, submitted in toto in a cassette labeled B. Part C: Received in formalin labeled ?bx EG junction? are 2 little-pink irregular tissue fragments measuring 0.25 cm in greatest dimension, submitted in toto in a cassette labeled C. Patient: Jesús Green Age/Sex: 48/M MR#: [id number] Page 1 of 2 Assessment & Plan Assessment & Plan (1) Hiatal hernia: Comment: Reviewed food recommendations by Code(s): K44.9 - Diaphragmatic hernia without obstruction or gangrene Plan: Discussed recommendations with patient (2) GERD without esophagitis: Comment: pantoprazole 20 mg -encouraged-very hesitant to take any medications Code(s): K21.9 - Gastro-esophageal reflux disease without esophagitis Plan pantoprazole 20 mg reflux precautions Medications: New pantoprazole 20 mg PO QAM 30 tabs 6RF Patient Instructions: Reviewed procedure report, pathology recommendations Discussed hiatal hernia, surgical consideration, consult he declines at this time-he may reconsider Discussed indication, pantoprazole 20 mg-he is agreed to use [id number] 8-12 weeks reflux precautions He will call with progress Coding Level of Care Code Est Pt Level 3 (89237) Diagnoses Hiatal hernia K44.9 GERD without esophagitis K21.9 Time Spent (min) 30
[2024-02-09 15:04] VITALS: BP 109/62; PULSE 76; BMI 26.6
== END 2024-02-09 16:28 | disposition home or self-care (01) ==
PROVIDERS: PCP Internal Medicine; Visit Provider Physician Assistant
DX: K44.9 Diaphragmatic hernia without obstruction or gangrene (principal); K21.9 Gastro-esophageal reflux disease without esophagitis
CPT/HCPCS: 99213

== ENCOUNTER → 2024-02-09 14:58 | Outpatient (BNVA) | payer OTHER, SELFPAY | PROVIDERS: PCP Internal Medicine; Visit Provider Physician Assistant ==

== ENCOUNTER 2024-03-07 17:11 | Outpatient (AMB) | payer OTHER, SELFPAY ==
[2024-03-07 17:13] VITALS: BP 102/64; PULSE 74; O2SAT 97; BMI 26.1
--- NOTE | 2024-03-07 17:13 | A.OFFPC_ITS ---
Vital Signs 03/07/24 17:13 Height 5 ft 4 in Weight 152 lb 4 oz BMI 26.1 BP 102/64 Blood Pressure Location Lt brachial Position Sitting Pulse 74 Pulse Source Pulse Oximeter Pulse Oximetry (%) 97 Oxygen Delivery Method Room Air Intake Visit Reasons: hyperlipidemia, GERD Admissions Director Required: No Accompanied by: Self / Same As Patient Allergies No Known Allergies Allergy (Verified 03/07/24 17:48) Medication List - Last Reconciled 03/07/24 by Leobardo Irwin MD fluticasone propionate 50 mcg/actuation 2 sprays intranasal DAILY PRN 30 days pantoprazole 20 mg PO QAM Tobacco use date assessed: 03/07/24 Dental Screening Dental Screen Date: 03/07/24 Did you have a dental visit in the last 12 months?: Yes Did you have a dental problem in the last 6 months where you did not have access to dental care?: No Was dental information given to patient?: Patient has dentist HPI hyperlipidemia, GERD HPI Details Patient comes in today for his follow up visit States that he feels okay He denies any headaches or dizziness Denies any chest pains, no SOB No nausea/vomiting, no abdominal pain - states that his GI symptoms have improved a lot with Pantoprazole daily EGD done by Dr. Shay last month revealed (+) esophagitis and gastritis as well as (+) hiatal hernia No change in bowel habits noted Would like to know how he did on his labs done back in August 2023 [facility] Medical History (Updated 03/07/24 @ 18:28 by Leobardo Irwin MD) GERD with esophagitis Vitamin D deficiency GERD without esophagitis Overweight (BMI 25.0-29.9) Pure hypercholesterolemia Low back pain Obstructive sleep apnea Surgical History History of esophagogastroduodenoscopy (EGD) No significant past surgical history Family History Father Medical history unknown Mother No problems noted. 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 1. Little interest or pleasure in doing things: not at all 2. Feeling down, depressed, or hopeless: not at all 3. Trouble falling or staying asleep, or sleeping too much: not at all 4. Feeling tired or having little energy: not at all 5. Poor appetite or overeating: not at all 6. Feeling bad about yourself - or that you are a failure or have let yourself or your family down: not at all 7. Trouble concentrating on things, such as reading the newspaper or watching television: not at all 8. Moving or speaking so slowly that other people could have noticed. Or the opposite - being so fidgety or restless that you have been moving around a lot more than usual: not at all 9. Thoughts that you would be better off or of hurting yourself in some way: not at all Total score: 0 Depression Screening Interpretation: Negative Depression Screening Done: Yes 47690 - PHQ-9 Billing: Yes Source: Developed by Drs. Santiago Carballo, Yanna Heck, Brendan Gold and colleagues, with an educational louise from [employer]. Thrive Questionnaire Date Thrive assessed: 03/07/24 I am a: Patient What is your living situation today?: I have a steady place to live Within the past 12 months, did the food you bought not last and you didn't have the money to get more?: Never true Within the past 12 months, did you worry whether your food would run out before you got money to buy more?: Never true Do you have trouble paying for medicines?: No Do you have trouble getting transportation to medical appointments?: No Do you have trouble paying your heating and electricity bill?: No Do you have trouble taking care of your child, family member or friend?: No Do you have trouble with day-to-day activities such as bathing, preparing meals, shopping, managing finances, etc.?: No Are you currently unemployed and looking for a job?: No Are you interested in more education?: No Currently or been in a relationship where the following occur: no concerns reported THRIVE Score: 0 AUDIT C Alcohol Use Questionnaire (AUDIT-C) 1. How often do you have a drink containing alcohol?: Never 3. How often do you have six or more drinks on one occasion?: Never Total Score: 0 Score Reviewed/Action Taken: Yes JUSTO-7 AMB Questionnaire JUSTO-7 Date JUSTO - 7 assessed: 09/02/23 Source: Developed by Drs. Santiago Carballo, Yanna Heck, Brendan Gold and colleagues, with an educational louise from [employer]. Review of Systems Const Denies chills, Denies fatigue, Denies fever(s) and Denies headache(s) Eyes Reports blurry vision ENT Denies dysphagia, Denies dizziness, Denies otalgia, Denies headache(s), Denies neck pain, Denies odynophagia and Denies sore throat Card Denies chest pain, Denies rapid heart rate, Denies irregular heart rhythm, Denies palpitations and Denies dyspnea Resp Denies cough, Denies dyspnea and Denies wheezing GI Denies abdominal pain, Denies constipation, Denies dysphagia, Denies heartburn (controlled), Denies diarrhea, Denies nausea, Denies odynophagia and Denies vomiting Denies difficulty urinating, Denies dysuria and Denies urinary frequency Musc Denies back pain, Denies arthralgias and Denies neck pain Skin/Breast Denies rash Neuro Denies dizziness, Denies headache(s) and Denies paresthesias Endo Denies fatigue and Denies palpitations Aller/Immun Denies wheezing Physical exam (Primary Care) Vital Signs: Last Vital Signs Pulse 74 03/07/24 17:13 BP 102/64 03/07/24 17:13 Pulse Ox 97 03/07/24 17:13 Oxygen Delivery Method Room Air 03/07/24 17:13 BMI result Body Mass Index 26.1 Tobacco/Smoking Status: Tobacco use Status Tobacco use date assessed 03/07/24 03/07/24 17:16 Patient Tobacco Use Status Former Tobacco user 03/07/24 17:16 e-Cigarette/Vaping Use Never Used 03/07/24 17:16 Depression Screening Interpretation: Negative Thrive Assessment: Date of Thrive Assessment Date Thrive assessed 09/02/23 03/07/24 17:16 Currently or been in a relationship where the following occur: no concerns reported Const General: no acute distress and alert HENMT Ears: TM's normal bilaterally and EAC's normal Throat: Yes posterior oropharynx normal and Yes tonsils normal (no TP congestion) Neck Neck: Yes no lymphadenopathy and Yes supple Thyroid: Thyroid normal Resp Auscultation: clear to auscultation bilaterally, no rales and no wheezes Cardio Rate: regular rate Rhythm: regular rhythm Heart sounds: no murmurs GI Palpation (GI): Soft to palpation and nontender Auscultation: normal bowel sounds General: Yes no CVA tenderness Back/Spine/Pelvis Back: no CVA tenderness Skin Rashes: no rashes Extrem General: Yes no clubbing, cyanosis or edema Results Reviewed Results Reviewed: Laboratory Tests 01/01/22 09/05/23 09/05/23 09:30 09:35 09:39 WBC 3.9 L 4.8 Hgb 15.6 15.8 Hct 45.3 45.4 Plt Count 184 195 Sodium 139 139 Potassium 4.4 4.0 Creatinine 0.91 0.88 Estimated GFR > 60 > 60 Fasting Glucose 86 86 Calcium 9.5 9.3 AST 22 19 ALT 26 20 Triglycerides 117 81 Cholesterol 205 210 H LDL Cholesterol, Calc 136 147 H HDL Cholesterol 46 47 PSA Screen 0.22 25-OH Vitamin D Total 25.4 L TSH 1.17 Ur Specific [place] 1.020 Urine Protein Negative Urine Glucose (UA) Negative Urine Blood Trace H Urine Nitrite Negative Ur Leukocyte Esterase Negative Assessment and Plan Assessment & Plan (1) Pure hypercholesterolemia: Code(s): E78.00 - Pure hypercholesterolemia, unspecified Plan: Results of his labs done back in August 2023 reviewed and discussed with patient - he is advised that his total and LDL cholesterol were still elevated and higher than recommended back then Reinforced low cholesterol diet Will recheck his labs and fasting lipids in 6 months for follow up (2) GERD with esophagitis: Comment: EGD done in January 2024 - (+) esophagitis and gastritis Code(s): K21.00 - Gastro-esophageal reflux disease with esophagitis, without bleeding Qualifiers: Esophagitis bleeding: without hemorrhage Qualified Code(s): K21.00 - Gastro-esophageal reflux disease with esophagitis, without bleeding Plan: Patient states that his symptoms are currently better controlled Reinforced dietary restrictions Continue Pantoprazole 40 mg QD Follow up with GI as scheduled (3) Allergic rhinitis: Code(s): J30.9 - Allergic rhinitis, unspecified Qualifiers: Allergic rhinitis trigger: unspecified Allergic rhinitis seasonality: unspecified Qualified Code(s): J30.9 - Allergic rhinitis, unspecified Plan: Continue Fluticasone 50 mcg nasal spray QD PRN (4) Vitamin D deficiency: Code(s): E55.9 - Vitamin D deficiency, unspecified Plan: He is advised that his Vitamin D level was still low on his labs done back in August 2023 Continue Vitamin D3 1000 units QD Will recheck his Vitamin D level in 6 months for follow up (5) Obstructive sleep apnea: Comment: Home sleep study done on 10/03/2020 revealed mild degree of sleep apnea. 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: Code(s): H54.3 - Unqualified visual loss, both eyes Plan: He was referred to ophthalmology for this last year but states that he was never able to get an appointment [facility] but advised patient that it may take a while to get in to see someone for his eyes there; advised that if he feels that his current vision issues most likely just need prescription eyeglasses, he can actually go to any program project analyst of his choice for this and most of them do not require any insurance referral (7) Overweight (BMI 25.0-29.9): Code(s): E66.3 - Overweight Plan: Reinforced diet/exercise as tolerated/lose weight Plan To return in 6 months (as scheduled) for his next annual physical examination Orders: Orders Complete Blood Count Auto Diff 08/27/24 D64.9 - Anemia, unspecified, Z00.00 - Encounter for general adult medical examination without abnormal findings Comprehensive [place]. Panel Fast 08/27/24 E78.00 - Pure hypercholesterolemia, unspecified, Z00.00 - Encounter for general adult medical examination without abnormal findings TSH reflex Free T4 08/27/24 E78.00 - Pure hypercholesterolemia, unspecified, Z00.00 - Encounter for general adult medical examination without abnormal findings UA CC w/rflx Micro + Cult 08/27/24 R30.0 - Dysuria, Z00.00 - Encounter for general adult medical examination without abnormal findings Vitamin D 25-OH Total 08/27/24 E55.9 - Vitamin D deficiency, unspecified, Z00.00 - Encounter for general adult medical examination without abnormal findings Prostate Specific Antigen 08/27/24 N40.0 - Benign prostatic hyperplasia without lower urinary tract symptoms, Z00.00 - Encounter for general adult medical examination without abnormal findings Lipid Panel 08/27/24 E78.00 - Pure hypercholesterolemia, unspecified, Z00.00 - Encounter for general adult medical examination without abnormal findings Referrals Ophthalmology Referral H54.3 - Unqualified visual loss, both eyes Coding Level of Care Code Est Pt Level 4 (22618) Diagnoses Pure hypercholesterolemia E78.00 Gastroesophageal reflux disease with esophagitis without hemorrhage K21.00 Esophagitis bleeding: without hemorrhage Allergic rhinitis, unspecified seasonality, unspecified trigger J30.9 Allergic rhinitis trigger: unspecified Allergic rhinitis seasonality: unspecified Vitamin D deficiency E55.9 Obstructive sleep apnea G47.33 Impaired vision in both eyes H54.3 Overweight (BMI 25.0-29.9) E66.3
== END 2024-03-07 17:59 | disposition home or self-care (01) ==
PROVIDERS: PCP Internal Medicine; Visit Provider Internal Medicine
DX: E78.00 Pure hypercholesterolemia, unspecified (principal); K21.00 Gastro-esophageal reflux disease with esophagitis, without bleeding; J30.9 Allergic rhinitis, unspecified; E55.9 Vitamin D deficiency, unspecified; G47.33 Obstructive sleep apnea (adult) (pediatric); H54.3 Unqualified visual loss, both eyes; E66.3 Overweight
CPT/HCPCS: 99214

== ENCOUNTER 2024-08-17 11:10 | Outpatient (AMB) | payer OTHER, SELFPAY ==
[2024-08-17 12:04] VITALS: BP 110/80; PULSE 74; O2SAT 98; BMI 26.8
--- NOTE | 2024-08-17 12:04 | AM.OFFWIN_ITS ---
Intake Vital Signs 08/17/24 12:04 Height 5 ft 4 in Weight 156 lb BMI 26.8 BP 110/80 Blood Pressure Location Rt brachial Position Sitting Pulse 74 Pulse Source Pulse Oximeter Pulse Oximetry (%) 98 Oxygen Delivery Method Room Air Intake Visit Reasons: EP-rt calf pain Patient Tobacco Use Status: Former Tobacco user Allergies No Known Allergies Allergy (Verified 03/07/24 17:48) HPI EP-rt calf pain HPI Details This note is constructed using voice recognition software. While every effort has been made to ensure accuracy, catering chef errors may have been included. The patient is a 49 year old male who presents to the clinic today with right calf pain since yesterday while playing pickleball. He notes that he had a sudden change in direction, and felt a pop sensation in his calf. He has been walking with a limp ever since. He denies redness and warmth. [facility] Medical History (Updated 03/07/24 @ 18:28 by Leobardo Irwin MD) GERD with esophagitis Vitamin D deficiency GERD without esophagitis Overweight (BMI 25.0-29.9) Pure hypercholesterolemia Low back pain Obstructive sleep apnea Surgical History History of esophagogastroduodenoscopy (EGD) No significant past surgical history Family History Father Medical history unknown Mother No problems noted. 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 Cognitive needs: No Hearing needs: No Vision needs: No Review of Systems Const All systems reviewed & are unremarkable except as noted in HPI and below Physical Exam Vital Signs: Last Vital Signs Pulse 74 08/17/24 12:04 BP 110/80 08/17/24 12:04 Pulse Ox 98 08/17/24 12:04 Oxygen Delivery Method Room Air 08/17/24 12:04 BMI result Body Mass Index 26.8 Const General: cooperative, healthy appearing, comfortable, no acute distress and alert Orientation/consciousness: patient oriented x3 Limitations: no limitations Resp Effort & Inspection: normal respiratory effort and able to speak in complete sentences Skin General skin exam: no rashes or lesions noted, elasticity normal and turgor normal Neuro General: patient oriented x3 Extrem Other: Negative Homans, negative Montemayor. Tender to palpation mid calf posteriorly. No erythema, warmth. Ankle and knee full range of motion. Strength 5/5. Intact distal neurovascular exam. Antalgic gait present General: Yes normal to inspection, Yes full ROM, Yes capillary refill normal and Yes normal exam except as noted Psych Appearance: grossly normal Mental Status: mental status grossly normal Speech and movement: Normal speech and movement present Affect: normal affect Assessment & Plan Assessment & Plan (1) Strain of right calf muscle: Code(s): S86.811A - Strain of other muscle(s) and tendon(s) at lower leg level, right l eg, initial encounter Plan: Most likely consistent with plantar a strain. Bridger wrap applied for compression, advised to continue with compressive therapy. Advised rest, ice, elevation. Additionally we provided him with crutches so that he could reduce the amount of weight bearing he is doing to that leg. Advised follow up if no improvement after a few weeks, or with any worsening as at that time it would be appropriate for him to have an evaluation with Orthopedics. Plan See above for full details and plan. Coding Level of Care Code Est Pt Level 4 (51521) Diagnoses Strain of right calf muscle S86.811A Time Spent (min) 25
== END 2024-08-17 13:20 | disposition home or self-care (01) ==
PROVIDERS: PCP Internal Medicine; Visit Provider Registered Nurse
DX: S86.811A Strain of other muscle(s) and tendon(s) at lower leg level, right leg, initial encounter (principal)

== ENCOUNTER → 2024-08-17 11:10 | Outpatient (BNVA) | payer OTHER, SELFPAY | PROVIDERS: PCP Internal Medicine ==

== ENCOUNTER 2024-09-03 10:30 | Outpatient (REF) | payer OTHER, SELFPAY ==
[2024-09-03 10:54] LABS: MANUAL DIFF FLAG NO
[2024-09-03 11:41] LABS: Basophils Percent Auto 0.7 % (0-2); Eosinophils Absolute Auto 0.1 X10*3/uL (0.0-0.4); Eosinophils Percent Auto 1.8 % (0-4); Hematocrit 47.6 % (42.0-52.0); Hemoglobin 16.5 g/dl (14.0-18.0); Imm Gran Abs Auto 0.01 X10*3/uL (0.00-0.03); Imm Gran Pct Auto 0.2 % (0.0-0.4); Lymphocytes Absolute Auto 1.8 X10*3/uL (1.2-4.9); Lymphocytes Percent Auto 39.5 % (20-40); Mean Corpuscular HGB Conc 34.7 g/dl (31.0-36.0); Mean Corpuscular Hemoglobin 32.7 pg (27.0-33.0); Mean Corpuscular Volume 94.3 fL (80.0-98.0); Mean Platelet Volume 9.7 fL (9.4-12.4); Monocytes Absolute Auto 0.4 X10*3/uL (0.1-1.2); Monocytes Percent Auto 9.3 % (2-11); Neutrophils Absolute Auto 2.2 x10*3/uL (2.0-8.3); Neutrophils Percent Auto 48.5 % (45-73); Platelet Count 194 X10*3/uL (160-400); Red Blood Count 5.05 X10*6/uL (4.60-5.80); Red Cell Distribution Width 12.3 % (11.0-16.0); White Blood Count 4.5 X10*3/uL (4.8-10.8)
[2024-09-03 11:43] LABS: Appearance Urine Clear; Color Urine Yellow; Glucose Urine UA Negative (Negative); Leukocyte Esterase Urine Negative (Negative); Nitrite Urine Negative (Negative); PH 6.5 (5.0-9.0); Specific Gravity - Urine 1.025 (1.005-1.025); Urine Blood Negative (Negative); Urine Ketones Negative (Negative); Urine Protein Negative (Neg-Trace)
[2024-09-03 11:53] LABS: Alanine Aminotransferase 28 U/L (0-40); Albumin Level 4.4 g/dL (3.5-5.0); Alkaline Phosphatase 78 U/L (39-117); Anion Gap 14 (12-20); Aspartate Amino Transferase 38 U/L (5-37); Bilirubin Total 1.1 mg/dL (0.0-1.0); Blood Urea Nitrogen 13 mg/dL (9-16); Calcium 9.3 mg/dL (8.4-10.2); Carbon Dioxide 25 mmol/L (22-29); Chloride 105 mmol/L (96-108); Cholesterol 204 mg/dL (<200); Estimated Glomerular Filt Rate > 60; Glucose Fasting 84 mg/dL (60-99); HDL Cholesterol 53 mg/dL (>40); LDL Cholesterol Calculated 131 mg/dL (<100); Potassium 4.6 mmol/L (3.3-5.1); Sodium 139 mmol/L (135-145); Total Protein 7.3 g/dL (6.5-8.0); Triglycerides 101 mg/dL (<150)
[2024-09-03 12:10] LABS: TSH reflex Free T4 1.26 uIU/mL (0.32-4.0); Vitamin D 25-OH Total 26.2 ng/mL (>30)
[2024-09-03 12:14] LABS: Prostate Specific Antigen 0.38 ng/mL (<0.05-4.0)
== END 2024-09-03 10:31 | disposition home or self-care (01) ==
LOC: HO.LAB 10:30
PROVIDERS: PCP Internal Medicine; Visit Provider Internal Medicine
DX: Z00.00 Encounter for general adult medical examination without abnormal findings (principal); D64.9 Anemia, unspecified; E78.00 Pure hypercholesterolemia, unspecified; N40.0 Benign prostatic hyperplasia without lower urinary tract symptoms; R30.0 Dysuria; E55.9 Vitamin D deficiency, unspecified; Z12.5 Encounter for screening for malignant neoplasm of prostate
CPT/HCPCS: 36415; 80053; 80061; 81003; 82306; 84153; 84443; 85025

== ENCOUNTER 2024-09-07 16:59 | Outpatient (AMB) | payer OTHER, SELFPAY ==
--- NOTE | 2024-09-07 17:00 | MHC.PC.OV ---
Vital Signs 09/07/24 17:02 Height 5 ft 4 in Weight 154 lb BMI 26.4 BP 122/80 Blood Pressure Location Lt brachial Position Sitting Intake Visit Reasons: Annual PE Intake Note: Patient here for an Annual Physical Exam Jd Edwards Developer Required: No Accompanied by: Self / Same As Patient Allergies No Known Allergies Allergy (Verified 09/07/24 17:18) Medication List - Last Reconciled 09/07/24 by Leobardo Irwin MD No Known Home Meds Tobacco use date assessed: 03/07/24 Dental Screening Dental Screen Date: 03/07/24 HPI Annual PE HPI Details Patient comes in today for his annual physical examination States that he feels okay Relates that he strained his right calf muscle about 3 weeks ago while playing pickle ball with his family, but relates that his calf muscle is starting to feel better now Notes that he has also been experiencing some soreness over the radial side of his left elbow for the past few days but he does not recall any recent injury or trauma to his elbow He denies any headaches or dizziness Denies any chest pains, no SOB No nausea/vomiting, no abdominal pain No change in bowel habits noted Denies any acute urinary symptoms He had his follow up labs done a few days ago - to discuss his results He had Cologuard testing done back in December 2021, which came out negative, and he will need repeat Cologuard testing next year (2024) as he still declines going for a regular screening colonoscopy [facility] Medical History GERD with esophagitis Vitamin D deficiency GERD without esophagitis Overweight (BMI 25.0-29.9) Pure hypercholesterolemia Low back pain Obstructive sleep apnea Surgical History History of esophagogastroduodenoscopy (EGD) No significant past surgical history Family History Father Medical history unknown Mother No problems noted. 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 1. Little interest or pleasure in doing things: not at all 2. Feeling down, depressed, or hopeless: not at all 3. Trouble falling or staying asleep, or sleeping too much: several days 4. Feeling tired or having little energy: not at all 5. Poor appetite or overeating: not at all 6. Feeling bad about yourself - or that you are a failure or have let yourself or your family down: not at all 7. Trouble concentrating on things, such as reading the newspaper or watching television: not at all 8. Moving or speaking so slowly that other people could have noticed. Or the opposite - being so fidgety or restless that you have been moving around a lot more than usual: not at all 9. Thoughts that you would be better off or of hurting yourself in some way: not at all Total score: 1 Depression Screening Interpretation: Negative Depression Screening Done: Yes 17913 - PHQ-9 Billing: Yes Source: Developed by Drs. Santiago Carballo, Yanna Heck, Brendan Gold and colleagues, with an educational louise from [employer]. Thrive Questionnaire Date Thrive assessed: 09/07/24 I am a: Patient What is your living situation today?: I have a steady place to live Within the past 12 months, did the food you bought not last and you didn't have the money to get more?: Never true Within the past 12 months, did you worry whether your food would run out before you got money to buy more?: Never true Do you have trouble paying for medicines?: I choose not to answer this question Do you have trouble getting transportation to medical appointments?: No Do you have trouble paying your heating and electricity bill?: No Do you have trouble taking care of your child, family member or friend?: No Do you have trouble with day-to-day activities such as bathing, preparing meals, shopping, managing finances, etc.?: No Are you currently unemployed and looking for a job?: No Are you interested in more education?: Yes Please select the resources that you would like help with: None Currently or been in a relationship where the following occur: No concerns reported THRIVE Score: 0 AUDIT C Alcohol Use Questionnaire (AUDIT-C) 1. How often do you have a drink containing alcohol?: Monthly or less 2. How many drinks containing alcohol do you have on a typical day when you are drinking?: 1 or 2 3. How often do you have six or more drinks on one occasion?: Never Total Score: 1 Score Reviewed/Action Taken: Yes JUSTO-7 AMB Questionnaire JUSTO-7 Date JUSTO - 7 assessed: 09/07/24 Feeling nervous, anxious, or on edge: 0 = Not at all Not being able to stop or control worryin = Not at all Worrying too much about different things: 0 = Not at all Trouble relaxin = Not at all Being so restless that it is hard to sit still: 0 = Not at all Becoming easily annoyed or irritable: 0 = Not at all Feeling afraid as if something awful might happen: 0 = Not at all Total JUSTO-7 score (0-4 normal; 5-9 mild; 10-14 moderate; 15-21 severe): 0 Source: Developed by Drs. Santiago Carballo, Yanna Heck, Brendan Gold and colleagues, with an educational louise from [employer]. Review of Systems Const Denies chills, Denies fatigue, Denies fever(s), Denies headache(s), Denies malaise and Denies weakness Eyes Denies blurry vision, Denies change in vision, Denies irritation and Denies itchy eyes ENT Denies dysphagia, Denies dizziness, Denies otalgia, Denies headache(s), Denies nasal congestion, Denies neck pain, Denies odynophagia and Denies sore throat Card Denies chest pain, Denies rapid heart rate, Denies irregular heart rhythm, Denies palpitations and Denies dyspnea Resp Denies chest congestion, Denies cough, Denies dyspnea and Denies wheezing GI Denies abdominal pain, Denies bloating, Denies constipation, Denies dysphagia, Denies heartburn, Denies diarrhea, Denies nausea, Denies odynophagia and Denies vomiting Denies hematuria, Denies difficulty urinating, Denies dysuria, Denies urinary frequency and Denies urinary urgency Musc Details: (+) right calf muscle pain Denies back pain, Reports arthralgias (over the lateral muscles near the left elbow), Denies joint swelling, Denies muscle weakness and Denies neck pain Skin/Breast Denies change in pigmentation, Denies lesions, Denies rash and Denies unusual bruising Neuro Denies dizziness, Denies headache(s), Denies paresthesias and Denies weakness Endo Denies fatigue and Denies palpitations Aller/Immun Denies itchy eyes and Denies wheezing Physical exam (Primary Care) Vital Signs: Last Vital Signs BP 122/80 09/07/24 17:02 BMI result Body Mass Index 26.4 Tobacco/Smoking Status: Tobacco use Status Tobacco use date assessed 03/07/24 09/07/24 17:02 Patient Tobacco Use Status Former Tobacco user 09/07/24 17:02 e-Cigarette/Vaping Use Never Used 09/07/24 17:02 PHQ-9: PHQ-9 Score PHQ-9: Total score 1 09/07/24 17:20 Depression Screening Interpretation: Negative Thrive Assessment: Date of Thrive Assessment Date Thrive assessed 09/07/24 09/07/24 17:02 Currently or been in a relationship where the following occur: No concerns reported Const General: no acute distress, alert and awake Orientation/consciousness: patient oriented x3 HENMT Head: Yes normocephalic and Yes atraumatic Ears: external ears normal, TM's normal bilaterally and EAC's normal General nose exam: No nasal discharge present Face and sinus: Yes normal facial exam and Yes sinuses nontender Teeth and gingiva: dentition normal Throat: Yes posterior oropharynx normal and Yes tonsils normal (no TP congestion) Eyes Eyelids: Yes eyelids normal Conjunctivae: conjunctivae normal Pupils: Equal, round and reactive pupils present EOM: EOMs intact bilaterally Neck Neck: Yes no lymphadenopathy and Yes supple Thyroid: Thyroid normal Resp Auscultation: clear to auscultation bilaterally, no rales and no wheezes Cardio Rate: regular rate Rhythm: regular rhythm Heart sounds: no murmurs GI Palpation (GI): Soft to palpation, nontender and No hepatosplenomegaly present Auscultation: normal bowel sounds General: Yes no CVA tenderness Back/Spine/Pelvis Back: no CVA tenderness Thoracic/Lumbar Spine: thoracic and lumbar spine normal to inspection Skin Lesions: no lesions Rashes: no rashes Neuro General: patient oriented x3, moves all extremities, no focal motor deficits and CN's II-XI intact bilaterally Cranial nerves: Yes Equal, round and reactive pupils present Cognition (Neuro): normal cognition Gait exam (Neuro): Normal gait present Extrem General: Yes no clubbing, cyanosis or edema Left upper extremity: elbow/forearm Details: tenderness (mild) Location: other (over the muscles on the lateral side of the left elbow) Right lower extremity: lower leg Details: tenderness (mild) Location: of the posterior calf Office Procedures Flu Questionnaire Does the patient have a severe egg allergy?: No Immunizations Fluarix Triv [id number] (PF) 45 mcg (15 mcg x 3)/0.5 mL IM syringe Performing Provider: Leobardo Irwin MD [facility] [place] [facility] Documented (not given) by: VISHNU Mendez on 09/07/24 17:06 Reason Not Given: Patient Refused Results Reviewed Results Reviewed: Laboratory Tests 09/03/24 09/03/24 10:49 10:52 WBC 4.5 L Hgb 16.5 Hct 47.6 Plt Count 194 Sodium 139 Potassium 4.6 Creatinine 0.92 Estimated GFR > 60 Fasting Glucose 84 Calcium 9.3 AST 38 H ALT 28 Triglycerides 101 Cholesterol 204 H LDL Cholesterol, Calc 131 H HDL Cholesterol 53 Prostate Specific Ag 0.38 25-OH Vitamin D Total 26.2 L TSH 1.26 Urine pH 6.5 Ur Specific Igo 1.025 Urine Protein Negative Urine Glucose (UA) Negative Urine Blood Negative Urine Nitrite Negative Ur Leukocyte Esterase Negative Coding Level of Care Code Est Pt Prev Care 40-64y(81230) Diagnoses Annual physical exam Z00.00 Pure hypercholesterolemia E78.00 Gastroesophageal reflux disease with esophagitis without hemorrhage K21.00 Esophagitis bleeding: without hemorrhage Allergic rhinitis, unspecified seasonality, unspecified trigger J30.9 Allergic rhinitis trigger: unspecified Allergic rhinitis seasonality: unspecified Vitamin D deficiency E55.9 Obstructive sleep apnea G47.33 Elevated LFTs R79.89 Strain of right calf muscle S86.811A Muscle strain of left forearm, sequela S56.912S Encounter type: sequela Overweight (BMI 25.0-29.9) E66.3 Assessment & Plan Assessment & Plan (1) Annual physical exam: Code(s): Z00.00 - Encounter for general adult medical examination without abnormal findings Category: Medical Plan: Results of his labs done a few days ago reviewed and discussed with patient He had Cologuard testing done in December 2021 and will be due for repeat Cologuard next year as he continues to decline going for a regular colonoscopy (2) Pure hypercholesterolemia: Code(s): E78.00 - Pure hypercholesterolemia, unspecified Category: Medical Plan: He is advised that his cholesterol levels have improved slightly from previous although his LDL cholesterol is still slightly elevated at 131 mg/dl Reinforced low cholesterol diet Will recheck his labs and fasting lipids in 6 months for follow up (3) GERD with esophagitis: Comment: EGD done in January 2024 - (+) esophagitis and gastritis Code(s): K21.00 - Gastro-esophageal reflux disease with esophagitis, without bleeding Category: Medical Qualifiers: Esophagitis bleeding: without hemorrhage Qualified Code(s): K21.00 - Gastro-esophageal reflux disease with esophagitis, without bleeding Plan: Reinforced dietary restrictions He was supposed to be on Pantoprazole 40 mg QD but he self-discontinued his Rx as he is very hesitant in taking any medications Patient states that his symptoms have been better controlled over the past few months Follow up with GI as scheduled (4) Allergic rhinitis: Code(s): J30.9 - Allergic rhinitis, unspecified Category: Medical Qualifiers: Allergic rhinitis trigger: unspecified Allergic rhinitis seasonality: unspecified Qualified Code(s): J30.9 - Allergic rhinitis, unspecified Plan: Continue Fluticasone 50 mcg nasal spray QD PRN (5) Vitamin D deficiency: Code(s): E55.9 - Vitamin D deficiency, unspecified Category: Medical Plan: He is advised that his Vitamin D level remains low on his recent labs and that he should start taking OTC Vitamin D3 2000 units QD (6) Obstructive sleep apnea: Comment: Home sleep study done on 10/03/2020 revealed mild degree of sleep apnea. Recommend auto PAP of 5-20 cm of water Code(s): G47.33 - Obstructive sleep apnea (adult) (pediatric) Category: Medical Plan: (+) MILD ANCELMO - confirmed on sleep studies done in 2011, 2013 and 2019, although patient has excessive snoring when sleeping at night Has not been able to tolerate any PAP devices Follow up with Sleep Medicine as scheduled to continue to help him get his sleep issues resolved (7) Elevated LFTs: Code(s): R79.89 - Other specified abnormal findings of blood chemistry Category: Medical Plan: His serum AST is slightly elevated but ALT is normal on his recent labs Discussed that this is likely related to his weight and should improve with weight loss Patient states that he does not drink alcohol (8) Strain of right calf muscle: Code(s): S86.811A - Strain of other muscle(s) and tendon(s) at lower leg level, right leg, initial encounter Category: Medical Plan: Improving Patient sustained this while playing pickle ball with his family about 3 weeks ago (9) Muscle strain of left forearm: Code(s): S56.912A - Strain of unspecified muscles, fascia and tendons at forearm level, left arm, initial encounter Category: Medical Qualifiers: Encounter type: sequela Qualified Code(s): S56.912S - Strain of unspecified muscles, fascia and tendons at forearm level, left arm, sequela Plan: He is advised that his recent left elbow lateral pain appears to be mostly over the muscles on the lateral side of the elbow, likely due to some muscle strain He is advised to start applying some warm compress over the sore area on his left elbow PRN for symptomatic relief He is instructed to avoid lifting or carrying any heavy weights with his left arm for at least a couple of weeks to avoid aggravating his left arm injury (10) Overweight (BMI 25.0-29.9): Code(s): E66.3 - Overweight Category: Medical Plan: Reinforced diet/exercise as tolerated/lose weight Plan Follow up in 6 months Orders: Orders Influenza [id number] Immunization Today Z23 - Encounter for immunization Comprehensive [place]. Panel Fast 6 Months E78.00 - Pure hypercholesterolemia, unspecified Lipid Panel 6 Months E78.00 - Pure hypercholesterolemia, unspecified Vitamin D 25-OH Total 6 Months E55.9 - Vitamin D deficiency, unspecified TSH reflex Free T4 1 Year E78.00 - Pure hypercholesterolemia, unspecified, Z00.00 - Encounter for general adult medical examination without abnormal findings Vitamin D 25-OH Total 1 Year E55.9 - Vitamin D deficiency, unspecified, Z00.00 - Encounter for general adult medical examination without abnormal findings Prostate Specific Antigen 1 Year N40.0 - Benign prostatic hyperplasia without lower urinary tract symptoms, Z00.00 - Encounter for general adult medical examination without abnormal findings Lipid Panel 1 Year E78.00 - Pure hypercholesterolemia, unspecified, Z00.00 - Encounter for general adult medical examination without abnormal findings Complete Blood Count Auto Diff 1 Year D64.9 - Anemia, unspecified, Z00.00 - Encounter for general adult medical examination without abnormal findings Comprehensive [place]. Panel Fast 1 Year E78.00 - Pure hypercholesterolemia, unspecified, Z00.00 - Encounter for general adult medical examination without abnormal findings UA CC w/rflx Micro + Cult 1 Year R30.0 - Dysuria, Z00.00 - Encounter for general adult medical examination without abnormal findings
[2024-09-07 17:02] VITALS: BP 122/80; BMI 26.4
== END 2024-09-07 17:24 | disposition home or self-care (01) ==
LOC: HO.HMCH 17:00
PROVIDERS: PCP Internal Medicine; Visit Provider Internal Medicine
DX: Z00.00 Encounter for general adult medical examination without abnormal findings (principal); E78.00 Pure hypercholesterolemia, unspecified; K21.00 Gastro-esophageal reflux disease with esophagitis, without bleeding; J30.9 Allergic rhinitis, unspecified; E55.9 Vitamin D deficiency, unspecified; G47.33 Obstructive sleep apnea (adult) (pediatric); R79.89 Other specified abnormal findings of blood chemistry; S86.811A Strain of other muscle(s) and tendon(s) at lower leg level, right leg, initial encounter; S56.91 Strain of unspecified muscles, fascia and tendons at forearm level; E66.3 Overweight; Z23 Encounter for immunization

== ENCOUNTER → 2024-09-07 16:59 | Outpatient (BNVA) | payer OTHER, SELFPAY | PROVIDERS: PCP Internal Medicine; Visit Provider Internal Medicine | DX: Z00.00 Encounter for general adult medical examination without abnormal findings (principal); E78.00 Pure hypercholesterolemia, unspecified; K21.00 Gastro-esophageal reflux disease with esophagitis, without bleeding; J30.9 Allergic rhinitis, unspecified; E55.9 Vitamin D deficiency, unspecified; G47.33 Obstructive sleep apnea (adult) (pediatric); R79.89 Other specified abnormal findings of blood chemistry; S86.811D Strain of other muscle(s) and tendon(s) at lower leg level, right leg, subsequent encounter; S56.91 Strain of unspecified muscles, fascia and tendons at forearm level; E66.3 Overweight; Z68.26 Body mass index [BMI] 26.0-26.9, adult; Z28.21 Immunization not carried out because of patient refusal | CPT/HCPCS: 90471; 96127 ==

== ENCOUNTER 2025-03-10 08:23 | Emergency (ER) | payer OTHER, SELFPAY ==
--- NOTE | ~2025-03-10 | XR_ITS ---
EXAMINATION: XR SHOULDER, RIGHT CLINICAL INFORMATION: pain COMPARISON: January 01, 2024. TECHNIQUE: AP external rotation, Grashey, scapular Y, and axillary views of the right shoulder. FINDINGS: There is a 2.2 cm calcification at the supraspinatus tendon region. No acute cortical disruption or malalignment. No lytic or blastic lesions. XR/XR shoulder RT min 2V IMPRESSION: Tendinosis versus tendinopathy, right supraspinatus tendon. Electronically signed by: Cy Wilde MD 03/10/2025 09:18 AM EDT
[2025-03-10 08:45] VITALS: BP 111/64; PULSE 76; RESP 20; TEMP 36.6; O2SAT 99; BMI 26.3
--- NOTE | 2025-03-10 08:47 | ED_ITS ---
HPI - General Adult General Chief complaint: Extremity Problem Stated complaint: Sharp pain R shoulder/back Time Seen by Provider: 03/10/25 08:48 Source: patient Mode of arrival: ambulatory Limitations: no limitations History of Present Illness ED Provider: Mone Sibley PA-C HPI narrative: Patient is a 49 year old assigned male at with a history of GERD presenting to the emergency department today with right shoulder pain. Patient states that over the last 2 weeks he has had right shoulder pain. Patient denies any dizziness, lightheadedness, abdominal pain, nausea, vomiting, fever, chills, blurry vision, double vision, loss of vision, chest pain, difficulty breathing, shortness of breath, back pain, night sweats, pain with urination, increased urinary frequency, increased urinary urgency, blood in his urine or stool, syncope or a near syncopal episode, recent trauma or falls, bowel incontinence, bladder incontinence, or any other complaints at this time. Onset (ago): week(s) (2) Location: right (shoulder) Relieving factors: none Exacerbating factors: movement Associated symptoms: denies other symptoms Related Data Previous Rx's ?Medication ?Instructions ?Recorded prednisone 20 mg tablet 20 mg PO DAILY 7 days #7 tabs 03/10/25 Allergies Allergy/AdvReac Type Severity Reaction Status Date / Time No Known Allergies Allergy Verified 03/10/25 08:46 Review of Systems Constitutional: Constitutional: Reports no additional constitutional complaints, Denies chills, Denies fever(s) and Denies night sweats Eyes: Eyes: Reports no additional eye complaints, Denies blurry vision, Denies change in vision, Denies diplopia, Denies eye discharge, Denies loss of vision and Denies eye pain ENT: Denies dizziness Cardiovascular: Cardiovascular: Reports no additional cardiovascular complaints, Denies chest pain, Denies lightheadedness, Denies Loss of Consciousness and Denies dyspnea Respiratory: Respiratory: Reports no additional respiratory complaints and Denies dyspnea Gastrointestinal: Gastrointestinal: Reports no additional gastrointestinal complaints, Denies abdominal pain, Denies melena, Denies hematochezia, Denies change in bowel habits and Denies change in stool character Genitourinary: Genitourinary: Reports no additional male genitourinary complaints, Denies hematuria, Denies oliguria, Denies difficulty urinating, Denies dysuria, Denies urinary frequency, Denies urinary hesitancy, Denies urinary incontinence and Denies urinary urgency Musculoskeletal: Musculoskeletal: Reports no additional musculoskeletal complaints, Denies numbness and Denies tingling Comments: right shoulder pain Neurologic: Denies dizziness, Denies loss of vision, Denies numbness and Denies tingling Psychiatric: Psychiatric: Reports no additional psychiatric complaints Endocrine: Endocrine: Reports no additional endocrine complaints Hematologic/Lymphatic: Hematologic/Lymphatic: Reports no additional hematologic/lymphatic complaints Allergic/Immunologic: Allergic/Immunologic: Reports no additional ganga rgic/immunologic complaints PMFSH Past Medical History Attestation statement: The following information was validated with the patient. Source: old records reviewed and nursing notes reviewed Medical History GERD with esophagitis Vitamin D deficiency GERD without esophagitis Overweight (BMI 25.0-29.9) Pure hypercholesterolemia Low back pain Obstructive sleep apnea Surgical History History of esophagogastroduodenoscopy (EGD) No significant past surgical history Family History Family History Father Medical history unknown Mother No problems noted. 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[employer] Cognitive needs: No Hearing needs: No Vision needs: No Physical Exam ED Vital Signs: Vital Signs - 24 hr 03/10/25 08:45 03/10/25 09:30 Temperature 98 F 98 F Pulse Rate 76 76 Respiratory Rate 20 20 Blood Pressure 111/64 111/64 Pulse Oximetry 99 99 Oxygen Delivery Method Room Air Room Air BMI result Body Mass Index 26.3 Const General: cooperative, no acute distress, alert and awake Nutritional Appearance: well nourished Orientation/consciousness: patient oriented x3 HENMT Head: Yes normal to inspection and Yes atraumatic Ears: hearing grossly normal bilaterally and external ears normal General nose exam: Normal external nose present, no nasal discharge noted and no epistaxis Face and sinus: Yes normal facial exam, No abrasion and No laceration Mouth: Normal oral and palatal mucosa present, no drooling and no muffled voice Eyes General: appearance normal, both eyes and all related structures Periorbital: periorbital findings normal Eyelids: Yes eyelids normal Conjunctivae: conjunctivae normal Pupils: Equal, round and reactive pupils present EOM: EOMs intact bilaterally Neck Neck: Yes normal visual inspection, Yes full ROM and Yes no lymphadenopathy Resp Effort & Inspection: normal respiratory effort and able to speak in complete sentences Neuro General: patient oriented x3, moves all extremities and CN's II-XI intact bilaterally Cranial nerves: Yes Equal, round and reactive pupils present Cognition (Neuro): normal cognition Extrem Other: patient has pain with right shoulder ROM General: Yes normal to inspection, Yes full ROM and Yes capillary refill normal Psych Appearance: grossly normal Mental Status: mental status grossly normal Affect: normal affect Attitude: cooperative Thought process: Normal thought process present Thought content: Normal thought content present Insight: Good insight present (Psych) Medical Decision Making Medical Decision Making MDM Narrative: Patient is a 49 year old assigned male at with a history of GERD presenting to the emergency department today with right shoulder pain. Patient's physical exam was as noted in the physical exam portion of this note. Patient's right shoulder x-ray showed right supraspinatus tenosis vs. tendinopathy. I explained my physical exam findings as well as all test results to the patient. I answered all questions asked by the patient. I stressed the importance of the patient taking his medication as directed (either prescribed or as the over the counter packaging recommends). I stressed the importance of the patient following up with his primary care provider and the orthopedic team. I stressed the importance of the patient returning to the emergency department immediately if his symptoms were to worsen or if he were to develop any dizziness, shortness of breath, difficulty breathing, chest pain, blurry vision, loss of vision, nausea, vomiting, abdominal pain, fever, chills, back pain, or any other complaints. Patient verbalized agreement and understanding with this treatment plan and discharge. Differential Diagnosis Differential Diagnoses: The differential diagnosis associated with the presentation includes Rotator cuff injury Rotator cuff strain Rotator cuff sprain Right shoulder pain Right shoulder strain Admission/Observation Consideration of admission/observation: Escalation of care including admission/observation considered Patient would have been admitted to the hospital had his work up had any findings where hospital admission was appropriate and his clinical presentation warranted hospital admission. Independent Interpretation I performed an independent interpretation of an: Plain X-Ray Interpretation: My interpretation is in agreement with the radiologist's impression of this imaging study. EXAMINATION: XR SHOULDER, RIGHT CLINICAL INFORMATION: pain COMPARISON: January 01, 2024. TECHNIQUE: AP external rotation, Grashey, scapular Y, and axillary views of the right shoulder. FINDINGS: There is a 2.2 cm calcification at the supraspinatus tendon region. No acute cortical disruption or malalignment. No lytic or blastic lesions. XR/XR shoulder RT min 2V IMPRESSION: Tendinosis versus tendinopathy, right supraspinatus tendon. Electronically signed by: Cy Wilde MD 03/10/2025 09:18 AM EDT RP Dictated By: Cy García MD Signed By: Electronically signed by Cy Myers MD 03/10/25 0918 Radiology Impression Discussion of test interpretation with radiology: I have reviewed the radiologist's reading. Discharge Plan Discharge Clinical Impression: Acute shoulder pain Patient Disposition: Home, Self-Care Instructions: Rotator Cuff Tendinitis (ED), Shoulder Pain (ED), Rotator Cuff Injury Exercises (DC) Additional Instructions: Your x-ray showed evidence of tendonitis / rotator cuff dysfunction as we discussed. Follow up with your primary care provider and the orthopedc team. Return to the emergency department immediately if your symptoms worsen or if you develop any numbness, tingling, dizziness, shortness of breath, difficulty chava thing, chest pain, blurry vision, loss of vision, nausea, vomiting, abdominal pain, fever, chills, back pain, or any other complaints. Please see the information below about our Patient Portal. If you are not yet enrolled in the [facility] Patient Portal, you will receive an enrollment email invitation following your visit to any [facility] setting. You may also self-enroll in the Patient Portal by visiting our website: [email or web address] The following information is required to access the Patient Portal: - Your [facility] Medical Record Number - Your personal home email address (must match what is in your electronic medical record, Registration staff can assist with this) - Name - Date of Capabilities of the Patient Portal: - Message some providers - View upcoming appointments - Access your health summary, medical history, and visit history - View current conditions and allergies - View procedure and lab results - View your medications, including guidelines, side effects, and precautions - Complete pre-appointment questionnaires requested by your provider - Ready summary reports of your office visits and procedures To access the Patient Portal Mobile Dave, follow these directions: - Search Bloglovin in the Dave Store or LiveTop Store - Download the Dave - Search for [facility] - Enter your login/password Prescriptions: New prednisone 20 mg tablet 20 mg PO DAILY 7 Days Qty: 7 0RF Referrals: [facility] Orthopedic Surgeons [Provider Group] (Call to establish and follow up with the orthopedic team. ) Leobardo Irwin MD [Primary Care Provider] - Interventions: ED Discharge Assessment Last Done: 03/10/25 09:30 Discharge Date/Time: 03/10/25 09:36 Print Language: Beninese
[2025-03-10 09:30] VITALS: BP 111/64; PULSE 76; RESP 20; TEMP 36.6; O2SAT 99
== END 2025-03-10 09:36 | disposition home or self-care (01) ==
PROVIDERS: Emergency Provider Emergency Medicine; PCP Internal Medicine
DX: M25.511 Pain in right shoulder (principal)
CPT/HCPCS: 73030; 99282; 99283

== ENCOUNTER → 2025-03-10 08:47 | Outpatient (BNV) | payer OTHER, SELFPAY | PROVIDERS: Emergency Provider Emergency Medicine; PCP Internal Medicine; Visit Provider Radiology Diagnostic Radiology | DX: M25.511 Pain in right shoulder (principal) | CPT/HCPCS: 73030 ==

== ENCOUNTER 2025-03-11 01:46 | Emergency (ER) | payer OTHER, SELFPAY ==
[2025-03-11 01:49] VITALS: BP 117/72; PULSE 86; RESP 18; TEMP 36.9; O2SAT 98; BMI 26.6
--- NOTE | 2025-03-11 06:05 | ED_ITS ---
HPI - Extremity Problem General Chief complaint: Extremity Injury, Upper Stated complaint: rotator cuff inj/pain Time Seen by Provider: 03/11/25 04:38 Source: patient Mode of arrival: ambulatory Limitations: no limitations History of Present Illness ED Provider: HPI Narrative: Patient complaining of right shoulder pain for last 4 weeks got worse in last few days was seen here yesterday x-ray showed supraspinatus tendinopathy patient will prescribe prednisone patient comes here as pain is still there and unable to abduct his right arm no recent trauma no history of rotator cuff tendinitis in the past left shoulder is normal Related Data Previous Rx's ?Medication ?Instructions ?Recorded prednisone 20 mg tablet 20 mg PO DAILY 7 days #7 tabs 03/10/25 ibuprofen 600 mg tablet 600 mg PO Q6H PRN fever or pain 03/11/25 #30 tabs oxycodone 5 mg tablet 5 mg PO Q6H PRN pain #20 tabs 03/11/25 Allergies Allergy/AdvReac Type Severity Reaction Status Date / Time No Known Allergies Allergy Verified 03/11/25 01:51 Review of Systems Review of Systems: Yes all other systems are reviewed and are negative [facility] Past Medical History Medical History GERD with esophagitis Vitamin D deficiency GERD without esophagitis Overweight (BMI 25.0-29.9) Pure hypercholesterolemia Low back pain Obstructive sleep apnea Surgical History History of esophagogastroduodenoscopy (EGD) No significant past surgical history Family History Family History Father Medical history unknown Mother No problems noted. 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 Oriented X3. No acute distress. Neck: Normal inspection. Neck supple. CVS: Normal heart rate and rhythm. Pulses normal. Respiratory: No respiratory distress. Equal air entry bilateral, no wheezing/rales/rhonchi Abdomen: Soft and nontender. Bowel sounds are present, no mass palpable, no CVA tenderness Skin: Skin warm and dry. Normal skin color. Normal skin turgor. Extremities: No lower extremity edema. No calf tenderness right shoulder tenderness at the supraspinatus insertion painful abduction above 80 degrees neurovascular intact Neuro: Oriented X 3. No motor deficit. No sensory deficit.No cerebellar signs , cranial nerves II-XII intact Medical Decision Making Medical Decision Making MDM Narrative: Patient's right rotator cuff tendinitis subacromial space was injected using lidocaine 2% patient felt partial relief unable to give with the full amount of lidocaine as patient has a vasovagal episode patient does not want 2nd injection. Patient will be given sling advised to follow up with Orthopedics Procedures Joint Aspiration/Injection Joint Asp./Inject. 1: Side of body: right Joint Aspirated: shoulder Ultrasound Guidance: No Skin Prep: Povidone-Iodine1% Medication Injected, if any: Lidocaine Amount of medication injected (mL): 3 Patient Tolerated Procedure: no complications Discharge Plan Discharge Clinical Impression: Right rotator cuff tendinitis Patient Disposition: Home, Self-Care Instructions: Rotator Cuff Tendinitis (ED) Additional Instructions: Wear the sling Oxycodone for severe pain Ibuprofen for inflammation and pain Follow up with Orthopedics Prescriptions: New ibuprofen 600 mg tablet 600 mg PO Q6H PRN (Reason: fever or pain) Qty: 30 0RF oxycodone 5 mg tablet 5 mg PO Q6H PRN (Reason: pain) Qty: 20 0RF Rx Instructions: Partial Fill upon patient request. No Action prednisone 20 mg tablet 20 mg PO DAILY 7 Days Qty: 7 0RF Referrals: Guero Stewart MD [Physician] - 10 days Print Language: Peruvian
[2025-03-11 06:24] VITALS: BP 111/63; PULSE 84; RESP 18; TEMP 36.4; O2SAT 94
[2025-03-11] MEDS: Lidocaine HCl 2 % MPF 5 ML VIAL INFILTRATI (06:26)
== END 2025-03-11 06:25 | disposition home or self-care (01) ==
PROVIDERS: Emergency Provider Internal Medicine; PCP Internal Medicine
DX: M75.101 Unspecified rotator cuff tear or rupture of right shoulder, not specified as traumatic (principal); M25.511 Pain in right shoulder
CPT/HCPCS: 20610; 99284; J2003

== ENCOUNTER 2025-03-13 15:40 | Outpatient (AMB) | payer OTHER, SELFPAY ==
--- NOTE | 2025-03-13 15:50 | MHC.PC.OV ---
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 Required: No Accompanied by: Self / Same As Patient Allergies No Known Allergies Allergy (Verified 03/13/25 16:11) Tobacco use date assessed: 03/13/25 Dental Screening Dental Screen Date: 03/13/25 Did you have a dental visit in the last 12 months?: Yes Did you have a dental problem in the last 6 months where you did not have access to dental care?: No Was dental information given to patient?: Patient has dentist [facility] Medical History GERD with esophagitis Vitamin D deficiency GERD without esophagitis Overweight (BMI 25.0-29.9) Pure hypercholesterolemia Low back pain Obstructive sleep apnea Surgical History History of esophagogastroduodenoscopy (EGD) No significant past surgical history Family History Father Medical history unknown Mother No problems noted. 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 1. Little interest or pleasure in doing things: not at all 2. Feeling down, depressed, or hopeless: not at all 3. Trouble falling or staying asleep, or sleeping too much: nearly every day 4. Feeling tired or having little energy: nearly every day 5. Poor appetite or overeating: not at all 6. Feeling bad about yourself - or that you are a failure or have let yourself or your family down: not at all 7. Trouble concentrating on things, such as reading the newspaper or watching television: not at all 8. Moving or speaking so slowly that other people could have noticed. Or the opposite - being so fidgety or restless that you have been moving around a lot more than usual: not at all 9. Thoughts that you would be better off or of hurting yourself in some way: not at all Total score: 6 Source: Developed by Drs. Santiago Carballo, Yanna Heck, Brendan Gold and colleagues, with an educational louise from [employer]. Thrive Questionnaire Date Thrive assessed: 03/13/25 I am a: Patient What is your living situation today?: I have a steady place to live Within the past 12 months, did the food you bought not last and you didn't have the money to get more?: Never true Within the past 12 months, did you worry whether your food would run out before you got money to buy more?: Never true Do you have trouble paying for medicines?: I choose not to answer this question Do you have trouble getting transportation to medical appointments?: No Do you have trouble paying your heating and electricity bill?: No Do you have trouble taking care of your child, family member or friend?: No Do you have trouble with day-to-day activities such as bathing, preparing meals, shopping, managing finances, etc.?: No Are you currently unemployed and looking for a job?: No Are you interested in more education?: Yes Please select the resources that you would like help with: None Currently or been in a relationship where the following occur: No concerns reported THRIVE Score: 0 AUDIT C Alcohol Use Questionnaire (AUDIT-C) 1. How often do you have a drink containing alcohol?: Monthly or less 2. How many drinks containing alcohol do you have on a typical day when you are drinking?: 1 or 2 3. How often do you have six or more drinks on one occasion?: Never Total Score: 1 JUSTO-7 AMB Questionnaire JUSTO-7 Date JUSTO - 7 assessed: 03/13/25 Feeling nervous, anxious, or on edge: 0 = Not at all Not being able to stop or control worryin = Not at all Worrying too much about different things: 0 = Not at all Trouble relaxin = Several days Being so restless that it is hard to sit still: 0 = Not at all Becoming easily annoyed or irritable: 0 = Not at all Feeling afraid as if something awful might happen: 0 = Not at all Total JUSTO-7 score (0-4 normal; 5-9 mild; 10-14 moderate; 15-21 severe): 1 Source: Developed by Drs. Santiago Carballo, Yanna Heck, Brendan Gold and colleagues, with an educational louise from [employer]. Physical exam (Primary Care) Vital Signs: Last Vital Signs Pulse 85 03/13/25 15:52 BP 110/60 03/13/25 15:52 Pulse Ox 99 03/13/25 15:52 Oxygen Delivery Method Room Air 03/13/25 15:52 BMI result Body Mass Index 26.7 Tobacco/Smoking Status: Tobacco use Status Tobacco use date assessed 03/13/25 03/13/25 16:11 Patient Tobacco Use Status Former Tobacco user 03/13/25 16:11 e-Cigarette/Vaping Use Never Used 03/13/25 16:11 PHQ-9: PHQ-9 Score PHQ-9: Total score 6 03/13/25 16:11 Thrive Assessment: Date of Thrive Assessment Date Thrive assessed 03/13/25 03/13/25 16:11 Currently or been in a relationship where the following occur: No concerns reported Coding
[2025-03-13 15:52] VITALS: BP 110/60; PULSE 85; O2SAT 99; BMI 26.7
--- NOTE | 2025-03-13 16:10 | MHC.PC.OV ---
Vital Signs 03/13/25 15:52 Height 5 ft 4 in Weight 155 lb 8 oz BMI 26.7 BP 110/60 Blood Pressure Location Lt brachial Position Sitting Pulse 85 Pulse Source Pulse Oximeter Pulse Oximetry (%) 99 Oxygen Delivery Method Room Air Intake Visit Reasons: Arm pain Personal Computer Specialist Required: No Accompanied by: Self / Same As Patient Allergies No Known Allergies Allergy (Verified 03/13/25 16:14) Medication List - Last Reconciled 03/13/25 by Leobardo Irwin MD ibuprofen 600 mg PO Q6H PRN prednisone 20 mg PO DAILY 7 days Tobacco use date assessed: 03/13/25 Dental Screening Dental Screen Date: 03/13/25 Did you have a dental visit in the last 12 months?: Yes Did you have a dental problem in the last 6 months where you did not have access to dental care?: No Was dental information given to patient?: Patient has dentist HPI Arm pain HPI Details Patient comes in today for follow up of his right shoulder pain Relates that he has been experiencing increasing right shoulder pain for about a month now and feels that his symptoms have gotten a lot worse lately to the point where he was having a hard time sleeping at night due to the pain He went to a local urgent center late last week for his shoulder pain and was reportedly prescribed some Naproxen, which he states did not help at all He subsequently went to the ER last Thursday (03/10/2025) for his shoulder and x-rays done revealed findings suggestive of (+) tendinosis versus tendinopathy involving the right supraspinatus tendon He was prescribed some oral Prednisone, which he states did not help He ended up going back to the ER the next day as he has not had any relief at all in his shoulder and was then prescribed Ibuprofen 600 mg as well as some Oxycodone 5 mg although patient states that 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 Oxycodone as he would rather not take it if he can avoid it States that the Ibuprofen seems to be helping somewhat He was also advised to see orthopedics JOHANNA and states that he called [facility] and was scheduled for early May 2025 As he did not think that he was going to be able to wait that long (2 months) to be seen, he ended up calling [facility] and now has an appointment later this week (03/16/25) He comes in today to see if he can have an MRI of his shoulder ordered for further evaluation due to his increased shoulder pain Patient denies any recent injury or trauma to his right shoulder and states that he is primarily left-handed so he does not really understand how he could have injured his right shoulder lately He denies any headaches or dizziness; denies any fever No other acute complaints or symptoms are noted [facility] Medical History GERD with esophagitis Vitamin D deficiency GERD without esophagitis Overweight (BMI 25.0-29.9) Pure hypercholesterolemia Low back pain Obstructive sleep apnea Surgical History History of esophagogastroduodenoscopy (EGD) No significant past surgical history Family History Father Medical history unknown Mother No problems noted. 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 1. Little interest or pleasure in doing things: not at all 2. Feeling down, depressed, or hopeless: not at all 3. Trouble falling or staying asleep, or sleeping too much: nearly every day 4. Feeling tired or having little energy: nearly every day 5. Poor appetite or overeating: not at all 6. Feeling bad about yourself - or that you are a failure or have let yourself or your family down: not at all 7. Trouble concentrating on things, such as reading the newspaper or watching television: not at all 8. Moving or speaking so slowly that other people could have noticed. Or the opposite - being so fidgety or restless that you have been moving around a lot more than usual: not at all 9. Thoughts that you would be better off or of hurting yourself in some way: not at all Total score: 6 Depression Screening Interpretation: Negative (he denies feeling depressed - answers are mostly due to his current shoulder pain) Depression Screening Done: Yes 66849 - PHQ-9 Billing: Yes Source: Developed by Drs. Santiago Carballo, Yanna Heck, Brendan Gold and colleagues, with an educational louise from [employer] Thrive Questionnaire Date Thrive assessed: 03/13/25 I am a: Patient What is your living situation today?: I have a steady place to live Within the past 12 months, did the food you bought not last and you didn't have the money to get more?: Never true Within the past 12 months, did you worry whether your food would run out before you got money to buy more?: Never true Do you have trouble paying for medicines?: I choose not to answer this question Do you have trouble getting transportation to medical appointments?: No Do you have trouble paying your heating and electricity bill?: No Do you have trouble taking care of your child, family member or friend?: No Do you have trouble with day-to-day activities such as bathing, preparing meals, shopping, managing finances, etc.?: No Are you currently unemployed and looking for a job?: No Are you interested in more education?: Yes Please select the resources that you would like help with: None Currently or been in a relationship where the following occur: No concerns reported THRIVE Score: 0 AUDIT C Alcohol Use Questionnaire (AUDIT-C) 1. How often do you have a drink containing alcohol?: Monthly or less 2. How many drinks containing alcohol do you have on a typical day when you are drinking?: 1 or 2 3. How often do you have six or more drinks on one occasion?: Never Total Score: 1 Score Reviewed/Action Taken: Yes JUSTO-7 AMB Questionnaire JUSTO-7 Date JUSTO - 7 assessed: 03/13/25 Feeling nervous, anxious, or on edge: 0 = Not at all Not being able to stop or control worryin = Not at all Worrying too much about different things: 0 = Not at all Trouble relaxin = Several days Being so restless that it is hard to sit still: 0 = Not at all Becoming easily annoyed or irritable: 0 = Not at all Feeling afraid as if something awful might happen: 0 = Not at all Total JUSTO-7 score (0-4 normal; 5-9 mild; 10-14 moderate; 15-21 severe): 1 Source: Developed by Drs. Santiago Carballo, Yanna Heck, Brendan Gold and colleagues, with an educational louise from [employer] Review of Systems Const Denies chills, Denies fatigue, Denies fever(s) and Denies headache(s) ENT Denies dizziness, Denies headache(s), Denies neck pain and Denies sore throat Card Denies chest pain, Denies irregular heart rhythm, Denies palpitations and Denies dyspnea Resp Denies chest congestion, Denies cough and Denies dyspnea GI Denies abdominal pain, Denies constipation, Denies heartburn, Denies diarrhea, Denies nausea and Denies vomiting Denies difficulty urinating, Denies dysuria and Denies urinary frequency Musc Denies back pain, Reports arthralgias (increased pain recently in the right shoulder - see HPI) and Denies neck pain Skin/Breast Denies rash Neuro Denies dizziness, Denies headache(s) and Denies paresthesias Endo Denies fatigue and Denies palpitations Physical exam (Primary Care) Vital Signs: Last Vital Signs Pulse 85 03/13/25 15:52 BP 110/60 03/13/25 15:52 Pulse Ox 99 03/13/25 15:52 Oxygen Delivery Method Room Air 03/13/25 15:52 BMI result Body Mass Index 26.7 Tobacco/Smoking Status: Tobacco use Status Tobacco use date assessed 03/13/25 03/13/25 16:11 Patient Tobacco Use Status Former Tobacco user 03/13/25 16:11 e-Cigarette/Vaping Use Never Used 03/13/25 16:11 PHQ-9: PHQ-9 Score PHQ-9: Total score 6 03/13/25 16:17 Depression Screening Interpretation: Negative (he denies feeling depressed - answers are mostly due to his current shoulder pain) Thrive Assessment: Date of Thrive Assessment Date Thrive assessed 03/13/25 03/13/25 16:11 Currently or been in a relationship where the following occur: No concerns reported Const General: no acute distress and alert HENMT Throat: Yes posterior oropharynx normal and Yes tonsils normal (no TP congestion) Neck Neck: Yes no lymphadenopathy and Yes supple Thyroid: Thyroid normal Resp Auscultation: clear to auscultation bilaterally, no rales and no wheezes Cardio Rate: regular rate Rhythm: regular rhythm Heart sounds: no murmurs GI Palpation (GI): Soft to palpation and nontender Auscultation: normal bowel sounds General: Yes no CVA tenderness Back/Spine/Pelvis Back: no CVA tenderness Thoracic/Lumbar Spine: No lumbar spinal tenderness Skin Rashes: no rashes Extrem General: Yes no clubbing, cyanosis or edema Right upper extremity: shoulder/upper arm Details: tenderness Location: of the A-C joint and abnormal ROM (limited ROM due to pain); no swelling Coding Level of Care Code Est Pt Level 3 (86173) Diagnoses Right shoulder tendinitis M77.8 Additional Codes PHQ-9 - 17118 - PHQ-9 Billing: Yes ([id number]) Assessment & Plan Assessment & Plan (1) Right shoulder tendinitis: Code(s): M77.8 - Other enthesopathies, not elsewhere classified Category: Medical Plan: X-rays of the right shoulder done at the ER a few days ago revealed findings suggestive of tendinosis versus tendinopathy involving the right supraspinatus tendon Patient is currently taking Ibuprofen 600 mg PRN with some relief although his shoulder pain still keeps him up at night most times lately Will try patient on some Tramadol 50 mg Q HS PRN for a few days to at least allow him to get some sleep at night He is scheduled to see Orthopedics at [facility] later this week for consultation and further management and he is encouraged to keep that appointment Patient has inquired about possibly getting an MRI of his shoulder for further evaluation as he is concerned about his increased pain Have advised patient that an MRI at this point will likely not provide any additional information regarding his shoulder, which is most likely still due to tendinitis or bursitis Have also advised patient that his insurance will likely not approve an MRI of the shoulder unless he has been through a trial of physical therapy Discussed with patient that if Orthopedics determined that an MRI is necessary based on their evaluation when he is seeing later this week, they can also try ordering the MRI for him Plan To return as scheduled in September 2025 for his next annual physical examination Medications: New tramadol 50 mg PO BEDTIME 7 days PRN 7 tabs 0RF severe pain
== END 2025-03-13 16:39 | disposition home or self-care (01) ==
PROVIDERS: PCP Internal Medicine; Visit Provider Internal Medicine
DX: M77.8 Other enthesopathies, not elsewhere classified (principal)

== ENCOUNTER → 2025-03-13 15:40 | Outpatient (BNVA) | payer OTHER, SELFPAY | PROVIDERS: PCP Internal Medicine | DX: M77.8 Other enthesopathies, not elsewhere classified (principal) | CPT/HCPCS: 96127 ==

== ENCOUNTER 2025-09-11 17:18 | Outpatient (AMB) | payer OTHER, SELFPAY ==
--- NOTE | 2025-09-11 17:25 | MHC.PC.OV ---
Vital Signs 09/11/25 17:26 Height 5 ft 4 in Weight 154 lb BMI 26.4 BP 112/70 Blood Pressure Location Lt brachial Position Sitting Pulse 66 Pulse Source Pulse Oximeter Pulse Oximetry (%) 98 Oxygen Delivery Method Room Air Intake Visit Reasons: PHYSICAL Allergies No Known Allergies Allergy (Verified 09/11/25 17:31) Medication List - Last Reconciled 09/11/25 by Leobardo Irwin MD No Known Home Meds Tobacco use date assessed: 03/13/25 Dental Screening Dental Screen Date: 03/13/25 HPI PHYSICAL HPI Details Patient comes in today for his annual physical examination States that he feels okay He denies any headaches or dizziness Denies any chest pains, no SOB No nausea/vomiting, no abdominal pain No change in bowel habits noted He denies any acute urinary symptoms Adds that he is still having problems sleeping at night - feels that his airway is closing up on his whenever he starts to fall asleep and he ends up waking back up often He does have (+) 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 but was not able to tolerate wearing any CPAP or Bipap device when he is sleeping He was not able to get his labs done prior to his appointment today - states that he asked if he had labs that he needed to do when he was contacted by the office to remind him about his appointment today and was supposedly told that he did not (his labs were ordered at his last annual PE last year) He had a negative Cologuard test done back in February 2025 so he will be due for either a repeat Cologuard test or a screening colonoscopy in 3 years (2027) [facility] Medical History GERD with esophagitis Vitamin D deficiency GERD without esophagitis Overweight (BMI 25.0-29.9) Pure hypercholesterolemia Low back pain Obstructive sleep apnea Surgical History History of esophagogastroduodenoscopy (EGD) Family History Father Medical history unknown Mother No problems noted. Other Substance abuse Social History Housing: House Alcohol intake: never Patient Tobacco Use Status: Former Tobacco user Tobacco use type: Cigarette e-Cigarette/Vaping Use: Never Used Second Hand Smoke Exposure: Yes service: No Current occupational status: employed Current occupation: [employer] Cognitive needs: No Hearing needs: No Vision needs: No Questionnaire PHQ-9 Over the last 2 weeks, how often have you been bothered by any of the following problems? 1. Little interest or pleasure in doing things: not at all 2. Feeling down, depressed, or hopeless: not at all 3. Trouble falling or staying asleep, or sleeping too much: nearly every day 4. Feeling tired or having little energy: nearly every day 5. Poor appetite or overeating: not at all 6. Feeling bad about yourself - or that you are a failure or have let yourself or your family down: not at all 7. Trouble concentrating on things, such as reading the newspaper or watching television: not at all 8. Moving or speaking so slowly that other people could have noticed. Or the opposite - being so fidgety or restless that you have been moving around a lot more than usual: not at all 9. Thoughts that you would be better off or of hurting yourself in some way: not at all Total score: 6 Depression Screening Interpretation: Negative (he denies feeling depressed ) Depression Screening Done: Yes 80829 - PHQ-9 Billing: Yes Source: Developed by Drs. Santiago Carballo, Yanna Heck, Brendan Gold and colleagues, with an educational louise from [employer]. Thrive Questionnaire Date Thrive assessed: 03/13/25 I am a: Patient What is your living situation today?: I have a steady place to live Within the past 12 months, did the food you bought not last and you didn't have the money to get more?: Never true Within the past 12 months, did you worry whether your food would run out before you got money to buy more?: Never true Do you have trouble paying for medicines?: I choose not to answer this question Do you have trouble getting transportation to medical appointments?: No Do you have trouble paying your heating and electricity bill?: No Do you have trouble taking care of your child, family member or friend?: No Do you have trouble with day-to-day activities such as bathing, preparing meals, shopping, managing finances, etc.?: No Are you currently unemployed and looking for a job?: No Are you interested in more education?: Yes Please select the resources that you would like help with: None Currently or been in a relationship where the following occur: No concerns reported THRIVE Score: 0 AUDIT C Alcohol Use Questionnaire (AUDIT-C) 1. How often do you have a drink containing alcohol?: Monthly or less 2. How many drinks containing alcohol do you have on a typical day when you are drinking?: 1 or 2 3. How often do you have six or more drinks on one occasion?: Never Total Score: 1 Score Reviewed/Action Taken: Yes JUSTO-7 AMB Questionnaire JUSTO-7 Date JUSTO - 7 assessed: 09/11/25 Feeling nervous, anxious, or on edge: 0 = Not at all Not being able to stop or control worryin = Not at all Worrying too much about different things: 0 = Not at all Trouble relaxin = Not at all Being so restless that it is hard to sit still: 0 = Not at all Becoming easily annoyed or irritable: 0 = Not at all Feeling afraid as if something awful might happen: 0 = Not at all Total JUSTO-7 score (0-4 normal; 5-9 mild; 10-14 moderate; 15-21 severe): 0 Source: Developed by Drs. Santiago Carballo, Yanna Heck, Brendan Gold and colleagues, with an educational louise from [employer]. Review of Systems Const Denies chills, Reports difficulty sleeping (often feels like his airway is blocking up when he starts falling asleep), Reports fatigue, Denies fever(s), Denies headache(s), Denies malaise and Denies weakness Eyes Denies blurry vision, Denies change in vision, Denies irritation and Denies itchy eyes ENT Denies dysphagia, Denies dizziness, Denies otalgia, Denies headache(s), Denies nasal congestion, Denies neck pain, Denies odynophagia and Denies sore throat Card Denies rapid heart rate, Denies irregular heart rhythm, Denies palpitations and Denies dyspnea Resp Denies chest congestion, Denies cough, Denies dyspnea and Denies wheezing GI Denies abdominal pain, Denies bloating, Denies constipation, Denies dysphagia, Denies heartburn, Denies diarrhea, Denies nausea, Denies odynophagia and Denies vomiting Denies hematuria, Denies difficulty urinating, Denies dysuria, Denies urinary frequency and Denies urinary urgency Musc Denies back pain, Denies arthralgias, Denies joint swelling, Denies muscle weakness and Denies neck pain Skin/Breast Denies change in pigmentation, Denies lesions, Denies rash and Denies unusual bruising Neuro Denies dizziness, Denies headache(s), Denies paresthesias and Denies weakness Endo Reports fatigue and Denies palpitations Aller/Immun Denies itchy eyes and Denies wheezing Physical exam (Primary Care) Vital Signs: Last Vital Signs Pulse 66 09/11/25 17:26 BP 112/70 09/11/25 17:26 Pulse Ox 98 09/11/25 17:26 Oxygen Delivery Method Room Air 09/11/25 17:26 BMI result Body Mass Index 26.4 Tobacco/Smoking Status: Tobacco use Status Tobacco use date assessed 03/13/25 09/11/25 17:30 Patient Tobacco Use Status Former Tobacco user 09/11/25 17:30 Tobacco use type Cigarette 09/11/25 17:30 e-Cigarette/Vaping Use Never Used 09/11/25 17:30 PHQ-9: PHQ-9 Score PHQ-9: Total score 6 09/11/25 17:30 Depression Screening Interpretation: Negative (he denies feeling depressed ) Thrive Assessment: Date of Thrive Assessment Date Thrive assessed 03/13/25 09/11/25 17:30 Currently or been in a relationship where the following occur: No concerns reported Const General: no acute distress, alert and awake Orientation/consciousness: patient oriented x3 HENMT Head: Yes normocephalic and Yes atraumatic Ears: external ears normal, TM's normal bilaterally and EAC's normal General nose exam: No nasal discharge present Face and sinus: Yes normal facial exam and Yes sinuses nontender Teeth and gingiva: dentition normal Throat: Yes posterior oropharynx normal and Yes tonsils normal (no TP congestion) Eyes Eyelids: Yes eyelids normal Conjunctivae: conjunctivae normal Pupils: Equal, round and reactive pupils present EOM: EOMs intact bilaterally Neck Neck: Yes no lymphadenopathy and Yes supple Thyroid: Thyroid normal Resp Auscultation: clear to auscultation bilaterally, no rales and no wheezes Cardio Rate: regular rate Rhythm: regular rhythm Heart sounds: no murmurs GI Palpation (GI): Soft to palpation, nontender and No hepatosplenomegaly present Auscultation: normal bowel sounds General: Yes no CVA tenderness Back/Spine/Pelvis Back: no CVA tenderness Thoracic/Lumbar Spine: thoracic and lumbar spine normal to inspection Skin Lesions: no lesions Rashes: no rashes Neuro General: patient oriented x3, moves all extremities, no focal motor deficits and CN's II-XI intact bilaterally Cranial nerves: Yes Equal, round and reactive pupils present Cognition (Neuro): normal cognition Gait exam (Neuro): Normal gait present Extrem General: Yes no clubbing, cyanosis or edema Coding Level of Care Code Est Pt Prev Care 40-64y(66181) Diagnoses Annual physical exam Z00.00 Pure hypercholesterolemia E78.00 Gastroesophageal reflux disease with esophagitis without hemorrhage K21.00 Esophagitis bleeding: without hemorrhage Allergic rhinitis, unspecified seasonality, unspecified trigger J30.9 Allergic rhinitis trigger: unspecified Allergic rhinitis seasonality: unspecified Vitamin D deficiency E55.9 Obstructive sleep apnea G47.33 Elevated LFTs R79.89 Overweight (BMI 25.0-29.9) E66.3 Additional Codes PHQ-9 - 56027 - PHQ-9 Billing: Yes ([id number]) Assessment & Plan Assessment & Plan (1) Annual physical exam: Code(s): Z00.00 - Encounter for general adult medical examination without abnormal findings Category: Medical Plan: Check labs JOHANNA to complete his annual exam today - lab orders will be reordered/updated and patient is advised to go and get them done JOHANNA He had Cologuard testing done in December 2021 and had repeat Cologuard again in February 2025 - both tests were negative and he will be due for repeat Cologuard OR a regular screening colonoscopy in 3 years, depending on which option he wants to choose when the time comes but he has declined going for a regular colonoscopy twice already so far (2) Pure hypercholesterolemia: Code(s): E78.00 - Pure hypercholesterolemia, unspecified Category: Medical Plan: Patient is reminded that his cholesterol levels have improved slightly from previous although his LDL cholesterol is still slightly elevated at 131 mg/dl when they were last checked a year ago Reinforced low cholesterol diet Will recheck his labs and fasting lipids JOHANNA for follow up (3) GERD with esophagitis: Comment: EGD done in January 2024 - (+) esophagitis and gastritis Code(s): K21.00 - Gastro-esophageal reflux disease with esophagitis, without bleeding Category: Medical Qualifiers: Esophagitis bleeding: without hemorrhage Qualified Code(s): K21.00 - Gastro-esophageal reflux disease with esophagitis, without bleeding Plan: Reinforced dietary restrictions He was supposed to be on Pantoprazole 40 mg QD but he self-discontinued his Rx as he is very hesitant in taking any prescription medications for too long Patient states that his symptoms have been better controlled recently with diet restrictions alone Follow up with GI as scheduled (4) Allergic rhinitis: Code(s): J30.9 - Allergic rhinitis, unspecified Category: Medical Qualifiers: Allergic rhinitis trigger: unspecified Allergic rhinitis seasonality: unspecified Qualified Code(s): J30.9 - Allergic rhinitis, unspecified Plan: Continue Fluticasone 50 mcg nasal spray QD PRN (5) Vitamin D deficiency: Code(s): E55.9 - Vitamin D deficiency, unspecified Category: Medical Plan: Continue OTC Vitamin D3 2000 units QD Will recheck his Vitamin D level for follow up (6) Obstructive sleep apnea: Comment: Home sleep study done on 10/03/2020 revealed mild degree of sleep apnea. Recommend auto PAP of 5-20 cm of water Code(s): G47.33 - Obstructive sleep apnea (adult) (pediatric) Category: Medical Plan: (+) MILD ANCELMO - confirmed on sleep studies done in 2011, 2013 and 2019, although patient has excessive snoring when sleeping at night Has not been able to tolerate any PAP devices and feels that his airways close up on him when he starts to fall asleep so he does have trouble sleeping as a result Will refer him back to Sleep Medicine for reassessment/reevaluation (7) Elevated LFTs: Code(s): R79.89 - Other specified abnormal findings of blood chemistry Category: Medical Plan: His serum AST was slightly elevated but ALT was normal on his most recent labs done about a year ago He has been advised that this is likely related to his weight and should improve with weight loss Patient states that he does not drink alcohol (8) Overweight (BMI 25.0-29.9): Code(s): E66.3 - Overweight Category: Medical Plan: Reinforced diet/exercise as tolerated/lose weight Plan To return in 1 year for his next annual physical examination Orders: Orders Lipid Panel Today E78.00 - Pure hypercholesterolemia, unspecified, Z00.00 - Encounter for general adult medical examination without abnormal findings UA CC w/rflx Micro + Cult Today R30.0 - Dysuria, Z00.00 - Encounter for general adult medical examination without abnormal findings Complete Blood Count Auto Diff Today D64.9 - Anemia, unspecified, Z00.00 - Encounter for general adult medical examination without abnormal findings Comprehensive Burton. Panel Fast Today E78.00 - Pure hypercholesterolemia, unspecified, Z00.00 - Encounter for general adult medical examination without abnormal findings TSH reflex Free T4 Today E78.00 - Pure hypercholesterolemia, unspecified, Z00.00 - Encounter for general adult medical examination without abnormal findings Vitamin D 25-OH Total Today E55.9 - Vitamin D deficiency, unspecified, Z00.00 - Encounter for general adult medical examination without abnormal findings Prostate Specific Antigen Scr Today Z00.00 - Encounter for general adult medical examination without abnormal findings Referrals Sleep Medicine Referral J44.9 - Chronic obstructive pulmonary disease, unspecified
[2025-09-11 17:26] VITALS: BP 112/70; PULSE 66; O2SAT 98; BMI 26.4
== END 2025-09-11 17:50 | disposition home or self-care (01) ==
LOC: HO.HMCH 17:19
PROVIDERS: PCP Internal Medicine; Visit Provider Internal Medicine
DX: Z00.00 Encounter for general adult medical examination without abnormal findings (principal); E78.00 Pure hypercholesterolemia, unspecified; K21.00 Gastro-esophageal reflux disease with esophagitis, without bleeding; J30.9 Allergic rhinitis, unspecified; E55.9 Vitamin D deficiency, unspecified; G47.33 Obstructive sleep apnea (adult) (pediatric); R79.89 Other specified abnormal findings of blood chemistry; E66.3 Overweight

== ENCOUNTER → 2025-09-11 17:18 | Outpatient (BNVA) | payer OTHER, SELFPAY | PROVIDERS: PCP Internal Medicine; Visit Provider Internal Medicine | DX: Z00.00 Encounter for general adult medical examination without abnormal findings (principal); G47.33 Obstructive sleep apnea (adult) (pediatric); E78.00 Pure hypercholesterolemia, unspecified; K21.00 Gastro-esophageal reflux disease with esophagitis, without bleeding; J30.9 Allergic rhinitis, unspecified; E55.9 Vitamin D deficiency, unspecified; E66.3 Overweight; R79.89 Other specified abnormal findings of blood chemistry; Z68.26 Body mass index [BMI] 26.0-26.9, adult | CPT/HCPCS: 96127 ==